=== PATIENT | female | born 2000 | race Two or more races ===

== ENCOUNTER 2020-02-25 12:41 | Emergency (ER) | payer MEDICAID ==
[2020-02-25 13:12] VITALS: BP 122/88; PULSE 77
[2020-02-25] MEDS ORDERED: Acetaminophen 500 MG Tab PO ONE (13:13)
[2020-02-25] MEDS ORDERED: Ondansetron 4 MG Tab.DIS PO ONE (13:14)
--- NOTE | 2020-02-25 13:47 | EDM.PDOC ---
ED HPI GENERAL MEDICAL PROBLEM - General Chief Complaint: Cardiovascular Problem Stated Complaint: MEDICAL Time Seen by Provider: 02/25/20 13:35 Source of Information: Reports: Patient, EMS, RN. Denies: Old Records History Limitations: Reports: Other (no old records) - History of Present Illness INITIAL COMMENTS - FREE TEXT/NARRATIVE: 19 yo female recently delivered a baby at [facility] and was discharged with medication for HTN. Elizabeth missed her dose of her BP med last night and when her BP was elevated this morning her mother called the ambulance. She did get her BP med before arrival and now her BP is OK. They did not call her doctor in [place]. Onset: Today Onset Date: 02/25/20 Duration: Minutes:, Improving Location: Reports: Head (mld BARBER) Quality: Reports: Ache Severity: Mild Improves with: Reports: Medication Worsens with: Reports: Other (? elevated BP) Context: Reports: Other (See HPI) Associated Symptoms: Reports: No Other Symptoms Treatments SUPERVISOR CHLORINE LIQUEFACTION: Reports: Other (see below) (BP med) Headache Pain Score (Numeric/FACES): 7 - Related Data Allergies Allergy/AdvReac Type Severity Reaction Status Date / Time haloperidol [From Haldol] Allergy Cannot Verified 02/25/20 12:59 Remember Home Meds: Home Meds Ferrous Sulfate 325 mg PO DAILY 02/25/20 [History] Labetalol [Normodyne] 100 mg PO BID 02/25/20 [History] Past Medical History HEENT History: Reports: None Cardiovascular History: Reports: None Respiratory History: Reports: None MOUNTER AUTOMATIC History: Reports: Neurological History: Reports: Concussion Psychiatric History: Reports: ADD, Anxiety, Depression, Panic Attack, Psych Hospitalization(s), Suicide Attempt, Suicidal Ideation, Other (See Below) Other Psychiatric History: pt with hx of video sexting that has caused emotional state - Infectious Disease History Infectious Disease History: Reports: Chicken Pox Other Infectious Disease History: pt is not current with shots due to appearant reaction to vaccinations when the pt was 2 yo - Past Surgical History Cardiovascular Surgical History: Reports: None Social & Family History - Family History Psychiatric: Reports: Anxiety - Tobacco Use Tobacco Use Status *Q: Never Tobacco User - Caffeine Use Caffeine Use: Reports: None Other Caffeine Use: not daily - Recreational Drug Use Recreational Drug Use: No - Living Situation & Occupation Living situation: Reports: Single, with Family Occupation: Student ED ROS GENERAL - Review of Systems Review Of Systems: See Below Constitutional: Reports: No Symptoms HEENT: Reports: No Symptoms Respiratory: Reports: No Symptoms Cardiovascular: Reports: No Symptoms Endocrine: Reports: No Symptoms GI/Abdominal: Reports: Nausea (mild). Denies: Vomiting : Reports: No Symptoms Musculoskeletal: Reports: No Symptoms Skin: Reports: No Symptoms Neurological: Reports: Headache (mild) ED EXAM, GENERAL - Physical Exam Exam: See Below Exam Limited By: No Limitations General Appearance: Alert, WD/WN, No Apparent Distress Eye Exam: Bilateral Eye: Normal Inspection Ears: Normal External Exam, Normal Canal, Hearing Grossly Normal, Normal TMs Ear Exam: Bilateral Ear: Auricle Normal, Canal Normal, TM normal Nose: Normal Inspection, No Blood Throat/Mouth: Normal Inspection, Normal Lips, Normal Oropharynx, Normal Voice, No Airway Compromise Head: Atraumatic, Normocephalic Neck: Normal Inspection Respiratory/Chest: No Respiratory Distress, Lungs Clear, Normal Breath Sounds, No Accessory Muscle Use Cardiovascular: Regular Rate, Rhythm, No Edema GI/Abdominal: Normal Bowel Sounds, Soft, Non-Tender. No: Tender Back Exam: Normal Inspection Extremities: Normal Inspection, Normal Range of Motion, Non-Tender, No Pedal Edema Neurological: Alert, Oriented, CN II-XII Intact, Normal Cognition, No Motor/Sensory Deficits Psychiatric: Normal Affect, Normal Mood Skin Exam: Warm, Dry, Intact, Normal Color, No Rash Course - Vital Signs Last Recorded V/S: Last Vital Signs Temp 36.8 C 02/25/20 13:02 Pulse 77 02/25/20 13:02 Resp 16 02/25/20 13:02 BP 122/88 02/25/20 13:02 Pulse Ox 99 02/25/20 13:02 - Orders/Labs/Meds Meds: Medications Discontinued Medications Generic Name Dose Route Start Last Admin Trade Name Priteshq PRN Reason Stop Dose Admin Acetaminophen 1,000 mg 02/25/20 13:13 02/25/20 13:20 Tylenol Extra Strength PO 02/25/20 13:14 1,000 mg ONETIME ONE Administration Ondansetron HCl 4 mg 02/25/20 13:14 02/25/20 13:20 Zofran Odt PO 02/25/20 13:15 4 mg ONETIME ONE Administration Departure - Departure Time of Disposition: 13:48 Disposition: Home, Self-Care 01 Condition: Good Clinical Impression: Transient hypertension during , Referrals: PCP,None [Primary Care Provider] - Additional Instructions: Continue your usual meds. Stay in touch with your doctor about your condition. Sepsis Event Note (ED) - Evaluation Sepsis Screening Result: No Definite Risk - Focused Exam Vital Signs: Vital Signs Temp Pulse Resp BP Pulse Ox 02/25/20 13:02 36.8 C 77 16 122/88 99 02/25/20 12:56 36.8 C 77 16 122/88 99
== END 2020-02-25 14:01 | disposition home or self-care (01) ==
LOC: JP.ED 12:41
DX: O13.5 Gestational [pregnancy-induced] hypertension without significant proteinuria, complicating the puerperium (principal); Z88.8 Allergy status to other drugs, medicaments and biological substances
CPT/HCPCS: 99284; A9270; 99283

== ENCOUNTER 2020-02-25 19:31 | Inpatient (IN) | payer MEDICAID ==
--- NOTE | 2020-02-25 19:43 | EDM.PDOC ---
ED HPI GENERAL MEDICAL PROBLEM - General Chief Complaint: Cardiovascular Problem Stated Complaint: HIGH BLOOD PRESSURE Time Seen by Provider: 02/25/20 19:55 Source of Information: Reports: Patient, Old Records, Provider (Dr. Urmila Farrar, KIT PLANNER at [facility]) History Limitations: Reports: No Limitations - History of Present Illness INITIAL COMMENTS - FREE TEXT/NARRATIVE: Elizabeth is a 19-year-old female who was seen earlier today for elevated blood pressure related to recent delivery of child at the [facility] in [place], [place]. She had perigestational hypertension and was discharged on antihypertensive medication. She was seen earlier today by my colleague, Dr. Hong for headache related to her elevated blood pressure. After some Zofran and acetaminophen, the headache improved and the patient was hemodynamically stable with a normal pressure in which she was subsequently discharged. She returns tonight with concerns about elevated blood pressure of 160/100 and severe headache, tremor, nausea, and blurred vision. The patient apparently signed out from [facility] AGAINST MEDICAL ADVICE with a possible diagnosis of preeclampsia or eclampsia. She was started on labetalol 3 times daily. I had the opportunity to discuss the case with her KIT PLANNER, Dr. Farrar at [facility] who reported that the patient was 38 weeks gestation and had gestational diabetes requiring roughly 90 units of insulin a day. Patient was receiving Levemir 30 units daily and NovoLog 18 units with meals. During the labor the patient was normal to hypotensive after having an epidural for 30 hours. The epidural was complicated in that patient has scoliosis and it took nearly an hour to get it established after 5 attempts. This may have resulted in her headache being a spinal headache in nature. The patient did have hypertension with pressures running in the 150s to 160s systolic over the low 100s diastolic. It was reported that her liver enzymes remain normal and her creatinine to protein ratio was 0.27. The patient was started on labetalol prior to leaving the hospital and was instructed to take her labetalol 3 times a day. On further questioning of the patient, her headache does intensify with standing making this likely a spinal headache. - Related Data Allergies Allergy/AdvReac Type Severity Reaction Status Date / Time haloperidol [From Haldol] Allergy Cannot Verified 02/25/20 12:59 Remember Home Meds: Home Meds Ferrous Sulfate 325 mg PO DAILY 02/25/20 [History] Labetalol [Normodyne] 100 mg PO TID 02/25/20 [History] Past Medical History HEENT History: Reports: None Cardiovascular History: Reports: None Respiratory History: Reports: None KIT PLANNER History: Reports: Neurological History: Reports: Concussion Psychiatric History: Reports: ADD, Anxiety, Depression, Panic Attack, Psych Hospitalization(s), Suicide Attempt, Suicidal Ideation, Other (See Below) Other Psychiatric History: pt with hx of video sexting that has caused emotional state - Infectious Disease History Infectious Disease History: Reports: Chicken Pox Other Infectious Disease History: pt is not current with shots due to appearant reaction to vaccinations when the pt was 2 yo - Past Surgical History Cardiovascular Surgical History: Reports: None Social & Family History - Family History Psychiatric: Reports: Anxiety - Caffeine Use Caffeine Use: Reports: None Other Caffeine Use: not daily - Living Situation & Occupation Living situation: Reports: Single, with Family Occupation: Student ED ROS GENERAL - Review of Systems Review Of Systems: See Below Constitutional: Reports: Weakness HEENT: Reports: Vision Change Respiratory: Reports: No Symptoms Cardiovascular: Reports: Blood Pressure Problem, Edema (Bilateral lower extremity edema) Endocrine: Reports: Fatigue, High Glucose GI/Abdominal: Reports: Abdominal Pain, Nausea : Reports: Other (No urine output today.) Skin: Reports: No Symptoms Neurological: Reports: Headache, Tremors Psychiatric: Reports: Anxiety Hematologic/Lymphatic: Reports: No Symptoms Immunologic: Reports: No Symptoms ED EXAM, GENERAL - Physical Exam Exam: See Below Exam Limited By: No Limitations General Appearance: Alert, Anxious, Mild Distress Eye Exam: Bilateral Eye: EOMI, Normal Fundi, Normal Inspection, PERRL, Vision Changes (Blurred vision), Other (Photophobia) Ears: Normal External Exam, Normal Canal, Hearing Grossly Normal, Normal TMs Throat/Mouth: Normal Inspection, Normal Lips, Normal Oropharynx, Normal Voice, No Airway Compromise Head: Atraumatic, Normocephalic Neck: Normal Inspection, Supple, Non-Tender, Full Range of Motion. No: Carotid Bruit, Lymphadenopathy (R), Lymphadenopathy (L) Respiratory/Chest: No Respiratory Distress, Lungs Clear, Normal Breath Sounds, No Accessory Muscle Use, Chest Non-Tender Cardiovascular: Normal Peripheral Pulses, Regular Rate, Rhythm, No JVD, No Murmur, Other (1+ edema both ankles and feet.) Peripheral Pulses: 2+: Radial (L), Radial (R), Posterior Tibial (L), Posterior Tibial (R) GI/Abdominal: Normal Bowel Sounds, Soft, Tender (Lower abdominal tenderness). No: Guarding, Rigid, Rebound Back Exam: Normal Inspection Extremities: Normal Range of Motion, Normal Capillary Refill, Pedal Edema Neurological: Alert, Oriented, CN II-XII Intact, Normal Cognition, Normal Gait, No Motor/Sensory Deficits, Abnormal Reflexes (Hyperreflexia in the upper and lower extremities including the biceps, triceps, and patellar reflexes bilaterally.) Psychiatric: Anxious Skin Exam: Warm, Dry, Intact, Normal Color, No Rash Lymphatic: No Adenopathy Course - Vital Signs Last Recorded V/S: Last Vital Signs Temp 36.4 C 02/25/20 19:51 Pulse 86 02/25/20 20:58 Resp 18 02/25/20 20:58 BP 123/87 02/25/20 20:58 Pulse Ox 99 02/25/20 20:58 - Orders/Labs/Meds Orders: Active Orders 24 hr Category Date Time Status Magnesium Sulfate/Water [Magnesium Sulfate in Water Med 02/25/20 20:30 Active Premix] 40 gm in 1,000 ml IV ASDIRECTED Sodium Chloride 0.9% [Saline Flush] Med 02/25/20 20:09 Active 10 ml FLUSH ASDIRECTED PRN Saline Lock Insert [OM.PC] Routine Oth 02/25/20 20:09 Ordered Medication Orders Magnesium Sulfate (Magnesium Sulfate In Water Premix) 40 gm in 1,000 mls @ 50 mls/hr IV ASDIRECTED ADDY; Protocol Last Admin: 02/25/20 21:03 Dose: 50 mls/hr Documented by: LOULOU Lactated Ringer's (Ringers, Lactated) 1,000 mls @ 125 mls/hr IV ASDIRECTED ADDY Sodium Chloride (Saline Flush) 10 ml FLUSH ASDIRECTED PRN PRN Reason: Keep Vein Open Last Admin: 02/25/20 20:33 Dose: 10 ml Documented by: LOULOU Sodium Chloride (Saline Flush) 10 ml FLUSH ASDIRECTED PRN PRN Reason: Keep Vein Open Labs: Laboratory Tests 02/25/20 02/25/20 02/25/20 Range/Units 20:11 20:11 20:27 WBC 18.0 H (4.5-11.0) K/uL RBC 3.05 L (3.30-5.50) M/uL Hgb 8.3 L D (12.0-15.0) g/dL Hct 25.3 L (36.0-48.0) % MCV 83 (80-98) fL MCH 27 (27-31) pg MCHC 33 (32-36) % Plt Count 209 (150-400) K/uL Add Manual Diff Yes Neutrophils % (Manual) 79 H (36-66) % Band Neutrophils % 5 (5-11) % Lymphocytes % (Manual) 11 L (24-44) % Monocytes % (Manual) 5 (2-6) % Sodium 143 (140-148) mmol/L Potassium 3.7 (3.6-5.2) mmol/L Chloride 109 H (100-108) mmol/L Carbon Dioxide 24 (21-32) mmol/L Anion Gap 13.7 (5.0-14.0) mmol/L BUN 10 (7-18) mg/dL Creatinine 0.8 (0.6-1.0) mg/dL Est Cr Clr Drug Dosing 101.78 mL/min Estimated GFR (MDRD) > 60 (>60) Glucose 88 (74-106) mg/dL Calcium 8.2 L (8.5-10.1) mg/dL Magnesium 1.9 (1.8-2.4) mg/dL Total Bilirubin 0.3 (0.2-1.0) mg/dL AST 13 L (15-37) U/L ALT 15 (12-78) U/L Alkaline Phosphatase 103 (46-116) U/L Albumin 2.3 L (3.4-5.0) g/dL Albumin/Globulin Ratio (1.2-2.2) Urine Color Yellow (YELLOW) Urine Appearance Slightly cloudy A (CLEAR) Urine pH 7.0 (5.0-8.0) Ur Specific [place] 1.025 (1.008-1.030) Urine Protein 30 H (NEGATIVE) mg/dL Urine Glucose (UA) Negative (NEGATIVE) mg/dL Urine Ketones Negative (NEGATIVE) mg/dL Urine Occult Blood Large H (NEGATIVE) Urine Nitrite Negative (NEGATIVE) Urine Bilirubin Small H (NEGATIVE) Urine Urobilinogen 2.0 H (0.2-1.0) EU/dL Ur Leukocyte Esterase Trace H (NEGATIVE) Urine RBC 20-30 H (0-5) Urine WBC 5-10 H (0-5) Ur Epithelial Cells Few Amorphous Sediment Not seen Urine Bacteria Moderate Urine Mucus Not seen Meds: Medications Generic Name Dose Route Start Last Admin Trade Name Priteshq PRN Reason Stop Dose Admin Magnesium Sulfate 40 gm in 1,000 mls @ 50 mls/hr 02/25/20 20:30 02/25/20 21:03 Magnesium Sulfate In Water Premix IV 50 mls/hr ASDIRECTED ADDY Administration Protocol Lactated Ringer's 1,000 mls @ 125 mls/hr 02/25/20 22:15 Ringers, Lactated IV ASDIRECTED ADDY Sodium Chloride 10 ml 02/25/20 20:09 02/25/20 20:33 Saline Flush FLUSH 10 ml ASDIRECTED PRN Administration Keep Vein Open Sodium Chloride 10 ml 02/25/20 22:13 Saline Flush FLUSH ASDIRECTED PRN Keep Vein Open Discontinued Medications Generic Name Dose Route Start Last Admin Trade Name Priteshq PRN Reason Stop Dose Admin Magnesium Sulfate 6 gm in 150 mls @ 25 mls/hr 02/25/20 20:09 02/25/20 21:08 Magnesium Sulfate In Water Premix IV 02/26/20 02:08 Not Given ONETIME ONE Magnesium Sulfate 4 mls @ 300 mls/hr 02/25/20 20:30 Magnesium Sulfate In Water Premix IV .BOLUS ADDY Magnesium Sulfate 2 gm in 50 mls @ 300 mls/hr 02/25/20 20:45 02/25/20 21:06 Magnesium Sulfate In Water Premix IV 02/25/20 21:14 300 mls/hr .Q10M ADDY Administration Lorazepam 0.5 mg 02/25/20 22:29 02/25/20 22:35 Ativan IVPUSH 02/25/20 22:30 0.5 mg ONETIME ONE Administration Ondansetron HCl 4 mg 02/25/20 20:42 Zofran IVPUSH 02/25/20 20:43 ONETIME ONE - Re-Assessments/Exams Free Text/Narrative Re-Assessment/Exam: 02/25/20 21:00 initiated therapy for preeclampsia with magnesium 6 g load and started a maintenance of 2 g/h thereafter. The patient is exhibiting symptoms that are worrisome for preeclampsia with elevated blood pressure, blurred vision, severe headache, tremor, and hyperreflexia. Her pressures at home of been in the 160 systolic over 100s diastolic although here she is in the high 140s over 90s. The patient has 3-4+ reflexes in the biceps, triceps, forearms, and patellar reflexes. There is no clonus. There is no papilledema on the funduscopic exam. The patient had a very complicated late term delivering at 37 weeks 5 days after being induced for related hypertension. She had an epidural that took 5 attempts because of scoliosis and then remained in place for 30 hours. During the time of labor she was hypotensive likely secondary to the epidural. She was hospitalized afterward and treated with labetalol for her blood pressure. It also appears that she had significant post anemia with a hemoglobin of 6.3 and likely received a transfusion as she was discharged with a hemoglobin of 7.9. In discussing with the patient's KIT PLANNER, Dr. Farrar at [facility] in [facility], the patient signed herself out AGAINST MEDICAL ADVICE yesterday and was instructed to take her labetalol 300 mg 3 times daily and check her blood pressure 3 times a day. The patient is at elevated risk for preeclampsia due to poorly controlled gestational diabetes. Because of the concern with the vision changes and severe headache, we will proceed with a CT of the head to evaluate for posterior reversible leukoencephalopathy. 02/25/20 21:40 I discussed the case with Melissa, nurse probation officer it sales consultant for [employer] to discuss admitting the patient for management of her preeclampsia. In addition, I will call Butch from anesthesia to apply a blood patch as a spinal CSF leak from the numerous attempts and prolonged epidural may be contributing to her severe headache. 02/25/20 22:42 patient given lorazepam 0.5 mg pre-blood patch for anxiety. Departure - Departure Time of Disposition: 22:43 Disposition: Admitted As Inpatient 66 Condition: Fair Clinical Impression: Preeclampsia in period Sepsis Event Note (ED) - Focused Exam Vital Signs: Vital Signs Temp Pulse Resp BP Pulse Ox 02/25/20 20:58 86 18 123/87 99 02/25/20 20:34 78 12 139/80 98 02/25/20 19:51 36.4 C 86 20 147/92 H 98 - Problem List & Annotations (1) Preeclampsia in period SNOMED Code(s): 894340523, 720489887 Code(s): O14.95 - UNSPECIFIED PRE-ECLAMPSIA, COMPLICATING THE PUERPERIUM Status: Acute Priority: High Current Visit: Yes - Problem List Review Problem List Initiated/Reviewed/Updated: Yes - My Orders Last 24 Hours: My Active Orders 02/25/20 20:09 Sodium Chloride 0.9% [Saline Flush] 10 ml FLUSH ASDIRECTED PRN Saline Lock Insert [OM.PC] Routine 02/25/20 20:30 Magnesium Sulfate/Water [Magnesium Sulfate in Water Premix] 40 gm in 1,000 ml IV ASDIRECTED - Assessment/Plan Last 24 Hours: My Active Orders 02/25/20 20:09 Sodium Chloride 0.9% [Saline Flush] 10 ml FLUSH ASDIRECTED PRN Saline Lock Insert [OM.PC] Routine 02/25/20 20:30 Magnesium Sulfate/Water [Magnesium Sulfate in Water Premix] 40 gm in 1,000 ml IV ASDIRECTED
[2020-02-25] MEDS ORDERED: Sodium Chloride 0.9% 10 ML Syringe FLUSH PRN ×2 (20:09→22:13)
[2020-02-25] MEDS ORDERED: MAGNESIUM SULFATE IV ONE (20:09)
[2020-02-25] MEDS ORDERED: [UNRECOGNIZED DRUG - OTHER] IV ONE (20:09)
[2020-02-25] MEDS ORDERED: MAGNESIUM SULFATE IV SCH (20:30)
[2020-02-25] MEDS ORDERED: WATER IV SCH (20:30)
[2020-02-25] MEDS ORDERED: Ondansetron 4 MG/2 ML SDV IVPUSH ONE (20:42)
[2020-02-25] MEDS: Magnesium Sulfate/Water 2 GM/50 ML BAG IV SCH ×3 (20:45→21:06)
[2020-02-25] MEDS: Magnesium Sulfate/Water 40 GM/1,000 ML BAG IV SCH (21:03)
[2020-02-25] MEDS ORDERED: LORazepam 2 MG/ML SDV IVPUSH ONE (22:29)
--- NOTE | 2020-02-25 22:36 | CRLCT ---
Indication: headache, preeclampsia Technique: Nonenhanced axial CT imaging through the head. Coronal reconstructions are provided. Comparison: None Findings: There is no intracranial hemorrhage, edema, or mass effect. There is normal attenuation of the brain parenchyma. The ventricles are normal in size. The basal cisterns are patent. The calvarium is intact. The visualized paranasal sinuses and mastoid air cells are aerated. Impression: Unremarkable examination. No acute intracranial process. Please note that all CT scans at this facility use dose modulation, iterative reconstruction, and/or weight-based dosing when appropriate to reduce radiation dose to as low as reasonably achievable. Dictated by Kal Cervantes MD @ Feb 25 2020 10:30PM Signed by Dr. Kal Cervantes @ Feb 25 2020 10:35PM
[2020-02-25] MEDS ORDERED: Lisinopril 20 MG Tab PO SCH (22:45)
[2020-02-25] MEDS ORDERED: Furosemide 20 MG/2 ML VIAL IVPUSH ONE (22:46)
[2020-02-25] MEDS ORDERED: hydrALAZINE 20 MG/ML SDV IVPUSH PRN (22:49)
[2020-02-25] MEDS ORDERED: Calcium Gluconate 10% 1 GM/10 ML SDV IVPUSH ONE (22:49)
[2020-02-25] MEDS: Lactated Ringers 1,000 ML IV SCH (23:04)
--- NOTE | 2020-02-25 23:08 | PCM.LDHP ---
L&D History of Present Illness - General Date of Service: 02/25/20 (post hypertension severe) Admit Problem/Dx: Patient Status Order with Admit Dx/Problem 02/25/20 22:13 Patient Status [ADT] Routine Admission Diagnosis/Problem Admission Diagnosis/Problem Pre-eclampsia, Source of Information: Patient History Limitations: Reports: No Limitations - History of Present Illness Introduction:: Delivered a viable male infant at [facility] several days ago with complications of GDM, hypertension, GBS positive. Prolonged induction at 38 weeks gestation. Multiple sticks for epidural, then 30 hours of infusion. Left the hospital AMA. Was to our ER twice today for headache and not feeling well. Her blood pressure was found to be in the pre eclamptic range and abnormal labs and clinical signs of severe eclampsia This evening was worked up appropriately in the ER. CT scan of head WNL, Blood patch by CATE for spinal headache and admitted for pre eclampsia. Baby is bottle feeding and with the father. Her mother has been with her this evening. 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 Para: 1 LMP (Approximate): Other (See Below) (is delivered a male and now post ) Neurological History: Reports: Concussion Psychiatric History: Reports: ADD, Anxiety, Depression, Panic Attack, Psych Hospitalization(s), Suicide Attempt, Suicidal Ideation, Other (See Below) Other Psychiatric History: pt with hx of video sexting that has caused emotional state - Infectious Disease History Infectious Disease History: Reports: Chicken Pox Other Infectious Disease History: pt is not current with shots due to appearant reaction to vaccinations when the pt was 2 yo - Past Surgical History Cardiovascular Surgical History: Reports: None Social & Family History - Family History Psychiatric: Reports: Anxiety - Tobacco Use Tobacco Use Status *Q: Never Tobacco User - Caffeine Use Caffeine Use: Reports: None Other Caffeine Use: not daily - Recreational Drug Use Recreational Drug Use: No - Living Situation & Occupation Living situation: Reports: Single, with Family Occupation: Student H&P Review of Systems - Review of Systems: Review Of Systems: See Below General: Reports: Malaise, Weakness HEENT: Reports: Headaches Pulmonary: Reports: No Symptoms Cardiovascular: Reports: Edema, Blood Pressure Problem Gastrointestinal: Reports: No Symptoms Genitourinary: Reports: Other (flow normal for post , mild cramping) Musculoskeletal: Reports: No Symptoms Skin: Reports: No Symptoms Psychiatric: Reports: No Symptoms Neurological: Reports: Headache, Tremors, Weakness Hematologic/Lymphatic: Reports: No Symptoms Immunologic: Reports: No Symptoms L&D Exam - Exam Exam: See Below - Vital Signs Vital Signs: Last Vital Signs Temp 97.5 F 02/25/20 19:51 Pulse 86 02/25/20 20:58 Resp 18 02/25/20 20:58 BP 123/87 02/25/20 20:58 Pulse Ox 99 02/25/20 20:58 Weight: 208 lb 5.389 oz - Exam General: Alert, Oriented, Cooperative HEENT: PERRLA, Hearing Intact, Mucosa Moist & [place], Pupils Equal Neck: Supple, Full Range of Motion Lungs: Clear to Auscultation, Normal Respiratory Effort Cardiovascular: Regular Rate, Regular Rhythm. No: Systolic Murmur GI/Abdominal Exam: Soft, Non-Tender, No Organomegaly Genitourinary: Vaginal bleeding Back Exam: Other (tender at the site of the epidural) Extremities: Pedal Edema, Baylee's Sign Skin: Warm, Dry, Intact Neurological: Cranial Nerves Intact, Normal Speech, Hyperreflexia DTR: 4+: Bicep (L), Bicep (R), Patella (L), Patella (R) Psychiatric: Alert, Normal Affect, Normal Mood - Patient Data Lab Results Last 24 hrs: Laboratory Results - last 24 hr 02/25/20 02/25/20 02/25/20 Range/Units 20:11 20:11 20:27 WBC 18.0 H (4.5-11.0) K/uL RBC 3.05 L (3.30-5.50) M/uL Hgb 8.3 L D (12.0-15.0) g/dL Hct 25.3 L (36.0-48.0) % MCV 83 (80-98) fL MCH 27 (27-31) pg MCHC 33 (32-36) % Plt Count 209 (150-400) K/uL Add Manual Diff Yes Neutrophils % (Manual) 79 H (36-66) % Band Neutrophils % 5 (5-11) % Lymphocytes % (Manual) 11 L (24-44) % Monocytes % (Manual) 5 (2-6) % Sodium 143 (140-148) mmol/L Potassium 3.7 (3.6-5.2) mmol/L Chloride 109 H (100-108) mmol/L Carbon Dioxide 24 (21-32) mmol/L Anion Gap 13.7 (5.0-14.0) mmol/L BUN 10 (7-18) mg/dL Creatinine 0.8 (0.6-1.0) mg/dL Est Cr Clr Drug Dosing 101.78 mL/min Estimated GFR (MDRD) > 60 (>60) Glucose 88 (74-106) mg/dL Calcium 8.2 L (8.5-10.1) mg/dL Magnesium 1.9 (1.8-2.4) mg/dL Total Bilirubin 0.3 (0.2-1.0) mg/dL AST 13 L (15-37) U/L ALT 15 (12-78) U/L Alkaline Phosphatase 103 (46-116) U/L Albumin 2.3 L (3.4-5.0) g/dL Albumin/Globulin Ratio (1.2-2.2) Urine Color Yellow (YELLOW) Urine Appearance Slightly cloudy A (CLEAR) Urine pH 7.0 (5.0-8.0) Ur Specific [place] 1.025 (1.008-1.030) Urine Protein 30 H (NEGATIVE) mg/dL Urine Glucose (UA) Negative (NEGATIVE) mg/dL Urine Ketones Negative (NEGATIVE) mg/dL Urine Occult Blood Large H (NEGATIVE) Urine Nitrite Negative (NEGATIVE) Urine Bilirubin Small H (NEGATIVE) Urine Urobilinogen 2.0 H (0.2-1.0) EU/dL Ur Leukocyte Esterase Trace H (NEGATIVE) Urine RBC 20-30 H (0-5) Urine WBC 5-10 H (0-5) Ur Epithelial Cells Few Amorphous Sediment Not seen Urine Bacteria Moderate Urine Mucus Not seen Result Diagrams: 02/25/20 20:11 02/25/20 20:11 - Problem List (1) GBS (group B streptococcus) infection SNOMED Code(s): 737556885 ICD Code: A49.1 - STREPTOCOCCAL INFECTION, UNSPECIFIED SITE Status: Acute Current Visit: Yes (2) Preeclampsia in period SNOMED Code(s): 537198316, 650963697 ICD Code: O14.95 - UNSPECIFIED PRE-ECLAMPSIA, COMPLICATING THE PUERPERIUM Status: Acute Priority: High Current Visit: Yes (3) Depressive disorder SNOMED Code(s): 81704983 ICD Code: F32.9 - MAJOR DEPRESSIVE DISORDER, SINGLE EPISODE, UNSPECIFIED Status: Chronic Current Visit: No (4) Spinal headache SNOMED Code(s): 507702278 ICD Code: G97.1 - OTHER REACTION TO SPINAL AND LUMBAR PUNCTURE Status: Acute Current Visit: Yes (5) complication SNOMED Code(s): 70310332 ICD Code: O90.89 - OTH COMPLICATIONS OF THE PUERPERIUM, NEC Status: Acute Current Visit: Yes Problem List Initiated/Reviewed/Updated: Yes Orders Last 24hrs: Active Orders 24 hr Category Date Time Status Patient Status [ADT] Routine ADT 02/25/20 22:13 Active Bedrest Bedside Commode [RC] ASDIRECTED Care 02/25/20 22:13 Active Height and Weight [RC] UPON Care 02/25/20 22:13 Active Intake and Output Strict [RC] ASDIRECTED Care 02/25/20 22:13 Active Notify Provider [RC] PRN Care 02/25/20 22:13 Active Notify Provider [RC] PRN Care 02/25/20 22:13 Active Notify Provider [RC] PRN Care 02/25/20 22:13 Active Notify Provider [RC] PRN Care 02/25/20 22:13 Active Peripheral IV Care [RC] . DIRECTED Care 02/25/20 22:13 Active Peripheral IV Care [RC] . DIRECTED Care 02/25/20 22:16 Active Positioning, Left Lateral [RC] ASDIRECTED Care 02/25/20 22:13 Active Vital Signs [RC] PER UNIT ROUTINE Care 02/25/20 22:13 Active Regular Diet [DIET] Diet 02/26/20 Breakfast Active ALANINE AMINOTRANSFERASE,ALT [CHEM] AM Lab 02/26/20 05:11 Ordered ASPARTATE AMNIOTRANSFERASE,AST [CHEM] Routine Lab 02/26/20 06:00 Ordered BASIC METABOLIC PANEL,BMP [CHEM] AM Lab 02/26/20 05:11 Ordered CBC WITH AUTO DIFF [HEME] AM Lab 02/26/20 05:11 Ordered INR,PT,PROTHROMBIN TIME [COAG] AM Lab 02/26/20 05:11 Ordered LACTATE DEHYDROGENASE,LDH [CHEM] AM Lab 02/26/20 05:11 Ordered PROTEIN/CREATININE RATIO,URINE [URCHEM] AM Lab 02/26/20 05:11 Ordered URIC ACID [CHEM] Routine Lab 02/26/20 06:00 Ordered Lactated Ringers [Ringers, Lactated] 1,000 ml Med 02/25/20 22:15 Active IV ASDIRECTED Magnesium Sulfate/Water [Magnesium Sulfate in Water Med 02/25/20 20:30 Active Premix] 40 gm in 1,000 ml IV ASDIRECTED Sodium Chloride 0.9% [Saline Flush] Med 02/25/20 20:09 Active 10 ml FLUSH ASDIRECTED PRN Sodium Chloride 0.9% [Saline Flush] Med 02/25/20 22:13 Active 10 ml FLUSH ASDIRECTED PRN cefTRIAXone [Rocephin] 2 gm Med 02/25/20 23:00 Ordered Sodium Chloride 0.9% [Normal Saline] 50 ml IV Q24H hydrALAZINE [Apresoline] Med 02/25/20 22:49 Ordered 5 mg IVPUSH Q20M PRN hydroCHLOROthiazide Med 02/26/20 09:00 Ordered 25 mg PO DAILY lisinopriL [Prinivil] Med 02/25/20 22:45 Ordered 20 mg PO DAILY Deep Tendon Reflexes [WOMSER] Per Unit Routine Oth 02/25/20 22:13 Ordered Peripheral IV Insertion Adult [OM.PC] Routine Oth 02/25/20 22:13 Ordered Saline Lock Insert [OM.PC] Routine Oth 02/25/20 20:09 Ordered Seizure Precautions [OM.PC] Routine Oth 02/25/20 22:13 Ordered Resuscitation Status Routine Resus Stat 02/25/20 22:13 Ordered Medication Orders Hydralazine HCl (Apresoline) 5 mg IVPUSH Q20M PRN PRN Reason: Hypertension Hydrochlorothiazide (Hydrochlorothiazide) 25 mg PO DAILY ADDY Magnesium Sulfate (Magnesium Sulfate In Water Premix) 40 gm in 1,000 mls @ 50 mls/hr IV ASDIRECTED ADDY; Protocol Last Admin: 02/25/20 21:03 Dose: 50 mls/hr Documented by: LOULOU Lactated Ringer's (Ringers, Lactated) 1,000 mls @ 125 mls/hr IV ASDIRECTED ADDY Ceftriaxone Sodium 2 gm/ (Sodium Chloride) 50 mls @ 100 mls/hr IV Q24H ADDY Lisinopril (Prinivil) 20 mg PO DAILY ADDY Sodium Chloride (Saline Flush) 10 ml FLUSH ASDIRECTED PRN PRN Reason: Keep Vein Open Last Admin: 02/25/20 20:33 Dose: 10 ml Documented by: LOULOU Sodium Chloride (Saline Flush) 10 ml FLUSH ASDIRECTED PRN PRN Reason: Keep Vein Open Assessment/Plan Comment:: 19 year old vaginal delivered male several days ago. Complicated by GDM was insulin, hypertension was sent home on beta reinaldo, GBS positive and was treated in the hospital, prolonged labor with 30 hour epidural. Left AMA from the hospital. Now has spinal headache, preeclampsia, elevated white count baby is bottle feeding and with father non smoker Plan: Magnesium infusion, seizure precautions lisinopril 20 mg daily Lasix 20 mg IV tonight then HCTZ 25 mg daily Hydralazine if blood pressure increases 160/110 Rocephin 2 gm daily for GBS and elevated white count reassess in the AM 48-72 hour stay
[2020-02-25] MEDS ORDERED: Magnesium Sulfate/Water 40 GM/1,000 ML BAG IV SCH (23:30)
[2020-02-25] MEDS ORDERED: Lisinopril 10 MG Tab PO SCH (23:45)
[2020-02-25] MEDS: cefTRIAXone 2 GM in Sodium Chloride 0.9% 50 ML IV SCH (23:48)
--- NOTE | 2020-02-26 00:02 | ANES ---
DATE OF SERVICE: 02/25/2020 Elizabeth is a 19-year-old female patient in our emergency department. I was consulted to assess the patient for epidural blood patch. Upon arrival, I found a healthy 19-year-old female with a significant post dural puncture headache. The patient states that on the 12th of this month, she was in another facility, and there were [address] an epidural catheter for labor and delivery. She states she had had a significant amount of discomfort with epidural attempts and then within the last 48 hours began a very significant headache issue as well as other pre-eclamptic symptoms. She states the headache went away as she lay flat, but when she sat straight up, it was a very significant headache. I discussed with her her history and reviewed her lab work and found no contraindication to epidural blood patch placement. I reviewed with her the procedure as well as risks and benefits, and she was okay to proceed, and consent was received. I had her seated at the edge of the bed. Betadine prep x3 to the lumbar region. A sterile drape was placed. 1% lidocaine skin wheal as well as deep at what I believed to be the L3-L4 region. At this level, it looks to be approximately 5 puncture sites. I was able to locate loss of resistance with ease. At that point, I had the nurse in the room place a new peripheral IV in the left antecubital space and with a sterile technique removed 20 mL of the patient's blood. I then injected that 20 mL through the epidural needle. The patient tolerated with some pressure but not unbearable and was able to tolerate the full 20 mL dose. Upon completion, the needle was removed. The drape was removed. Her back was washed and a Band-Aid over the injection site. I placed her in a supine position and discussed with her approximately an hour or two in this position before sitting permanently upright as well as a minimal amount of fluid due to her hemoglobin at the 8.3 range. I discussed the procedure with the nurse as well as with Sarah Ray, and she was going to diurese her at this point as well. The patient tolerated the procedure quite well. Please refer to nursing notes for vital signs and neuro status throughout and postprocedure. Thank you very much for the consult. Butch Long CRNA /[id number]
[2020-02-26] MEDS: Lactated Ringers 1,000 ML IV SCH ×2 (07:21→16:24)
[2020-02-26] MEDS ORDERED: Calcium Gluconate 10% 1 GM/10 ML SDV IVPUSH PRN (08:00)
[2020-02-26] MEDS: Hydrochlorothiazide 25 MG Tab PO SCH (08:17)
[2020-02-26] MEDS: Acetaminophen 500 MG Tab PO PRN ×3 (08:17→22:52)
[2020-02-26] MEDS: Lisinopril 20 MG Tab PO SCH (08:18)
--- NOTE | 2020-02-26 09:55 | PCM.PN ---
- General Info Date of Service: 02/26/20 (post pre eclampsia) Admission Dx/Problem (Free Text): Patient Status Order with Admit Dx/Problem 02/25/20 22:13 Patient Status [ADT] Routine Admission Diagnosis/Problem Admission Diagnosis/Problem Pre-eclampsia, Functional Status: Reports: Pain Controlled - Review of Systems General: Reports: Fatigue, Appetite HEENT: Reports: Other (headache resolved) Pulmonary: Reports: No Symptoms Cardiovascular: Reports: Edema (no longer pitting and not as extensive) Gastrointestinal: Reports: No Symptoms Genitourinary: Reports: Other (flow light, not much cramping, voiding large amounts of clear urine) Musculoskeletal: Reports: Back Pain (discomfort at the site of the epidural) Skin: Reports: No Symptoms Neurological: Reports: Weakness. Denies: Tremors Psychiatric: Reports: No Symptoms - Patient Data Vitals - Most Recent: Last Vital Signs Temp 96.5 F L 02/26/20 08:00 Pulse 91 02/26/20 08:00 Resp 18 02/26/20 08:00 BP 127/71 02/26/20 08:18 Pulse Ox 98 02/26/20 08:00 Weight - Most Recent: 208 lb 5.389 oz I&O - Last 24 Hours: Intake & Output 02/25/20 02/26/20 02/26/20 22:59 06:59 14:59 Intake Total 1130 Output Total 1500 2800 Balance -1500 -1670 Lab Results Last 24 Hours: Laboratory Results - last 24 hr 02/25/20 02/25/20 02/25/20 Range/Units 20:11 20:11 20:11 WBC 18.0 H (4.5-11.0) K/uL RBC 3.05 L (3.30-5.50) M/uL Hgb 8.3 L D (12.0-15.0) g/dL Hct 25.3 L (36.0-48.0) % MCV 83 (80-98) fL MCH 27 (27-31) pg MCHC 33 (32-36) % Plt Count 209 (150-400) K/uL Add Manual Diff Yes Neutrophils % (Manual) 79 H (36-66) % Band Neutrophils % 5 (5-11) % Lymphocytes % (Manual) 11 L (24-44) % Monocytes % (Manual) 5 (2-6) % Eosinophils % (Manual) (2-4) % Anisocytosis PT (9.5-12.0) sec INR (0.80-1.20) Sodium 143 (140-148) mmol/L Potassium 3.7 (3.6-5.2) mmol/L Chloride 109 H (100-108) mmol/L Carbon Dioxide 24 (21-32) mmol/L Anion Gap 13.7 (5.0-14.0) mmol/L BUN 10 (7-18) mg/dL Creatinine 0.8 (0.6-1.0) mg/dL Est Cr Clr Drug Dosing 101.78 mL/min Estimated GFR (MDRD) > 60 (>60) Glucose 88 (74-106) mg/dL POC Glucose 96 (74-106) MG/DL Uric Acid (2.6-6.2) mg/dL Calcium 8.2 L (8.5-10.1) mg/dL Magnesium 1.9 (1.8-2.4) mg/dL Total Bilirubin 0.3 (0.2-1.0) mg/dL AST 13 L (15-37) U/L ALT 15 (12-78) U/L Alkaline Phosphatase 103 (46-116) U/L Lactate Dehydrogenase (82-234) U/L Total Protein 5.6 L (6.4-8.2) g/dL Albumin 2.3 L (3.4-5.0) g/dL Globulin 3.3 (2.3-3.5) g/dL Albumin/Globulin Ratio 0.7 L (1.2-2.2) Urine Color (YELLOW) Urine Appearance (CLEAR) Urine pH (5.0-8.0) Ur Specific [place] (1.008-1.030) Urine Protein (NEGATIVE) mg/dL Urine Glucose (UA) (NEGATIVE) mg/dL Urine Ketones (NEGATIVE) mg/dL Urine Occult Blood (NEGATIVE) Urine Nitrite (NEGATIVE) Urine Bilirubin (NEGATIVE) Urine Urobilinogen (0.2-1.0) EU/dL Ur Leukocyte Esterase (NEGATIVE) Urine RBC (0-5) Urine WBC (0-5) Ur Epithelial Cells Amorphous Sediment Urine Bacteria Urine Mucus Ur Random Creatinine (20.0-370.0) mg/dL U Random Total Protein (6.0-11.9) mg/dL Protein/Creatinin Ratio (21.0-161.0) mg/g 02/25/20 02/26/20 02/26/20 Range/Units 20:27 01:07 05:11 WBC (4.5-11.0) K/uL RBC (3.30-5.50) M/uL Hgb (12.0-15.0) g/dL Hct (36.0-48.0) % MCV (80-98) fL MCH (27-31) pg MCHC (32-36) % Plt Count (150-400) K/uL Add Manual Diff Neutrophils % (Manual) (36-66) % Band Neutrophils % (5-11) % Lymphocytes % (Manual) (24-44) % Monocytes % (Manual) (2-6) % Eosinophils % (Manual) (2-4) % Anisocytosis PT (9.5-12.0) sec INR (0.80-1.20) Sodium (140-148) mmol/L Potassium (3.6-5.2) mmol/L Chloride (100-108) mmol/L Carbon Dioxide (21-32) mmol/L Anion Gap (5.0-14.0) mmol/L BUN (7-18) mg/dL Creatinine (0.6-1.0) mg/dL Est Cr Clr Drug Dosing mL/min Estimated GFR (MDRD) (>60) Glucose (74-106) mg/dL POC Glucose (74-106) MG/DL Uric Acid (2.6-6.2) mg/dL Calcium (8.5-10.1) mg/dL Magnesium 4.7 H D (1.8-2.4) mg/dL Total Bilirubin (0.2-1.0) mg/dL AST (15-37) U/L ALT (12-78) U/L Alkaline Phosphatase (46-116) U/L Lactate Dehydrogenase (82-234) U/L Total Protein (6.4-8.2) g/dL Albumin (3.4-5.0) g/dL Globulin (2.3-3.5) g/dL Albumin/Globulin Ratio (1.2-2.2) Urine Color Yellow (YELLOW) Urine Appearance Slightly cloudy A (CLEAR) Urine pH 7.0 (5.0-8.0) Ur Specific [place] 1.025 (1.008-1.030) Urine Protein 30 H (NEGATIVE) mg/dL Urine Glucose (UA) Negative (NEGATIVE) mg/dL Urine Ketones Negative (NEGATIVE) mg/dL Urine Occult Blood Large H (NEGATIVE) Urine Nitrite Negative (NEGATIVE) Urine Bilirubin Small H (NEGATIVE) Urine Urobilinogen 2.0 H (0.2-1.0) EU/dL Ur Leukocyte Esterase Trace H (NEGATIVE) Urine RBC 20-30 H (0-5) Urine WBC 5-10 H (0-5) Ur Epithelial Cells Few Amorphous Sediment Not seen Urine Bacteria Moderate Urine Mucus Not seen Ur Random Creatinine 5.0 L (20.0-370.0) mg/dL U Random Total Protein < 6.0 L (6.0-11.9) mg/dL Protein/Creatinin Ratio (21.0-161.0) mg/g 02/26/20 02/26/20 02/26/20 Range/Units 05:17 05:17 05:17 WBC 17.3 H (4.5-11.0) K/uL RBC 3.59 (3.30-5.50) M/uL Hgb 9.3 L (12.0-15.0) g/dL Hct 29.9 L (36.0-48.0) % MCV 83 (80-98) fL MCH 26 L (27-31) pg MCHC 31 L (32-36) % Plt Count 247 (150-400) K/uL Add Manual Diff Yes Neutrophils % (Manual) 74 H (36-66) % Band Neutrophils % 5 (5-11) % Lymphocytes % (Manual) 14 L (24-44) % Monocytes % (Manual) 4 (2-6) % Eosinophils % (Manual) 3 (2-4) % Anisocytosis Moderate H PT 9.3 L (9.5-12.0) sec INR 0.85 (0.80-1.20) Sodium 142 (140-148) mmol/L Potassium 3.5 L (3.6-5.2) mmol/L Chloride 105 (100-108) mmol/L Carbon Dioxide 25 (21-32) mmol/L Anion Gap 15.5 H (5.0-14.0) mmol/L BUN 8 (7-18) mg/dL Creatinine 0.7 (0.6-1.0) mg/dL Est Cr Clr Drug Dosing 116.32 mL/min Estimated GFR (MDRD) > 60 (>60) Glucose 89 (74-106) mg/dL POC Glucose (74-106) MG/DL Uric Acid (2.6-6.2) mg/dL Calcium 7.6 L (8.5-10.1) mg/dL Magnesium (1.8-2.4) mg/dL Total Bilirubin (0.2-1.0) mg/dL AST (15-37) U/L ALT 19 (12-78) U/L Alkaline Phosphatase (46-116) U/L Lactate Dehydrogenase 237 H (82-234) U/L Total Protein (6.4-8.2) g/dL Albumin (3.4-5.0) g/dL Globulin (2.3-3.5) g/dL Albumin/Globulin Ratio (1.2-2.2) Urine Color (YELLOW) Urine Appearance (CLEAR) Urine pH (5.0-8.0) Ur Specific [place] (1.008-1.030) Urine Protein (NEGATIVE) mg/dL Urine Glucose (UA) (NEGATIVE) mg/dL Urine Ketones (NEGATIVE) mg/dL Urine Occult Blood (NEGATIVE) Urine Nitrite (NEGATIVE) Urine Bilirubin (NEGATIVE) Urine Urobilinogen (0.2-1.0) EU/dL Ur Leukocyte Esterase (NEGATIVE) Urine RBC (0-5) Urine WBC (0-5) Ur Epithelial Cells Amorphous Sediment Urine Bacteria Urine Mucus Ur Random Creatinine (20.0-370.0) mg/dL U Random Total Protein (6.0-11.9) mg/dL Protein/Creatinin Ratio (21.0-161.0) mg/g 02/26/20 02/26/20 02/26/20 Range/Units 05:17 05:17 05:17 WBC (4.5-11.0) K/uL RBC (3.30-5.50) M/uL Hgb (12.0-15.0) g/dL Hct (36.0-48.0) % MCV (80-98) fL MCH (27-31) pg MCHC (32-36) % Plt Count (150-400) K/uL Add Manual Diff Neutrophils % (Manual) (36-66) % Band Neutrophils % (5-11) % Lymphocytes % (Manual) (24-44) % Monocytes % (Manual) (2-6) % Eosinophils % (Manual) (2-4) % Anisocytosis PT (9.5-12.0) sec INR (0.80-1.20) Sodium (140-148) mmol/L Potassium (3.6-5.2) mmol/L Chloride (100-108) mmol/L Carbon Dioxide (21-32) mmol/L Anion Gap (5.0-14.0) mmol/L BUN (7-18) mg/dL Creatinine (0.6-1.0) mg/dL Est Cr Clr Drug Dosing mL/min Estimated GFR (MDRD) (>60) Glucose (74-106) mg/dL POC Glucose (74-106) MG/DL Uric Acid 6.1 (2.6-6.2) mg/dL Calcium (8.5-10.1) mg/dL Magnesium 5.5 H D (1.8-2.4) mg/dL Total Bilirubin (0.2-1.0) mg/dL AST 18 (15-37) U/L ALT (12-78) U/L Alkaline Phosphatase (46-116) U/L Lactate Dehydrogenase (82-234) U/L Total Protein (6.4-8.2) g/dL Albumin (3.4-5.0) g/dL Globulin (2.3-3.5) g/dL Albumin/Globulin Ratio (1.2-2.2) Urine Color (YELLOW) Urine Appearance (CLEAR) Urine pH (5.0-8.0) Ur Specific [place] (1.008-1.030) Urine Protein (NEGATIVE) mg/dL Urine Glucose (UA) (NEGATIVE) mg/dL Urine Ketones (NEGATIVE) mg/dL Urine Occult Blood (NEGATIVE) Urine Nitrite (NEGATIVE) Urine Bilirubin (NEGATIVE) Urine Urobilinogen (0.2-1.0) EU/dL Ur Leukocyte Esterase (NEGATIVE) Urine RBC (0-5) Urine WBC (0-5) Ur Epithelial Cells Amorphous Sediment Urine Bacteria Urine Mucus Ur Random Creatinine (20.0-370.0) mg/dL U Random Total Protein (6.0-11.9) mg/dL Protein/Creatinin Ratio (21.0-161.0) mg/g 01/16/21 Range/Units 09:12 WBC (4.5-11.0) K/uL RBC (3.30-5.50) M/uL Hgb (12.0-15.0) g/dL Hct (36.0-48.0) % MCV (80-98) fL MCH (27-31) pg MCHC (32-36) % Plt Count (150-400) K/uL Add Manual Diff Neutrophils % (Manual) (36-66) % Band Neutrophils % (5-11) % Lymphocytes % (Manual) (24-44) % Monocytes % (Manual) (2-6) % Eosinophils % (Manual) (2-4) % Anisocytosis PT (9.5-12.0) sec INR (0.80-1.20) Sodium (140-148) mmol/L Potassium (3.6-5.2) mmol/L Chloride (100-108) mmol/L Carbon Dioxide (21-32) mmol/L Anion Gap (5.0-14.0) mmol/L BUN (7-18) mg/dL Creatinine (0.6-1.0) mg/dL Est Cr Clr Drug Dosing mL/min Estimated GFR (MDRD) (>60) Glucose (74-106) mg/dL POC Glucose (74-106) MG/DL Uric Acid (2.6-6.2) mg/dL Calcium (8.5-10.1) mg/dL Magnesium 6.1 H D (1.8-2.4) mg/dL Total Bilirubin (0.2-1.0) mg/dL AST (15-37) U/L ALT (12-78) U/L Alkaline Phosphatase (46-116) U/L Lactate Dehydrogenase (82-234) U/L Total Protein (6.4-8.2) g/dL Albumin (3.4-5.0) g/dL Globulin (2.3-3.5) g/dL Albumin/Globulin Ratio (1.2-2.2) Urine Color (YELLOW) Urine Appearance (CLEAR) Urine pH (5.0-8.0) Ur Specific [place] (1.008-1.030) Urine Protein (NEGATIVE) mg/dL Urine Glucose (UA) (NEGATIVE) mg/dL Urine Ketones (NEGATIVE) mg/dL Urine Occult Blood (NEGATIVE) Urine Nitrite (NEGATIVE) Urine Bilirubin (NEGATIVE) Urine Urobilinogen (0.2-1.0) EU/dL Ur Leukocyte Esterase (NEGATIVE) Urine RBC (0-5) Urine WBC (0-5) Ur Epithelial Cells Amorphous Sediment Urine Bacteria Urine Mucus Ur Random Creatinine (20.0-370.0) mg/dL U Random Total Protein (6.0-11.9) mg/dL Protein/Creatinin Ratio (21.0-161.0) mg/g Med Orders - Current: Current Medications Acetaminophen (Tylenol Extra Strength) 500 mg PO Q4H PRN PRN Reason: muscle soreness Last Admin: 02/26/20 08:17 Dose: 500 mg Documented by: Calcium Gluconate (Calcium Gluconate) 1 gm IVPUSH ONETIME PRN PRN Reason: MAGNESIUM TOXICITY Hydralazine HCl (Apresoline) 5 mg IVPUSH Q20M PRN PRN Reason: Hypertension Hydrochlorothiazide (Hydrochlorothiazide) 25 mg PO DAILY [facility] Last Admin: 02/26/20 08:17 Dose: 25 mg Documented by: Magnesium Sulfate (Magnesium Sulfate In Water Premix) 40 gm in 1,000 mls @ 50 mls/hr IV ASDIRECTED [facility]; Protocol Last Admin: 02/25/20 21:03 Dose: 50 mls/hr Documented by: Lactated Ringer's (Ringers, Lactated) 1,000 mls @ 125 mls/hr IV ASDIRECTED [facility] Last Admin: 02/26/20 07:21 Dose: 125 mls/hr Documented by: Ceftriaxone Sodium 2 gm/ (Sodium Chloride) 50 mls @ 100 mls/hr IV Q24H [facility] Last Admin: 02/25/20 23:48 Dose: 100 mls/hr Documented by: Magnesium Sulfate (Magnesium Sulfate In Water Premix) 40 gm in 1,000 mls @ 50 mls/hr IV ASDIRECTED [facility]; Protocol Lisinopril (Prinivil) 20 mg PO DAILY [facility] Last Admin: 02/26/20 08:18 Dose: 20 mg Documented by: Sodium Chloride (Saline Flush) 10 ml FLUSH ASDIRECTED PRN PRN Reason: Keep Vein Open Discontinued Medications Calcium Gluconate (Calcium Gluconate) 1 gm IVPUSH ONETIME ONE Stop: 02/25/20 22:50 Last Admin: 02/25/20 23:48 Dose: Not Given Documented by: Furosemide (Lasix) 20 mg IVPUSH ONETIME ONE Stop: 02/25/20 22:47 Last Admin: 02/25/20 23:48 Dose: 20 mg Documented by: Magnesium Sulfate (Magnesium Sulfate In Water Premix) 6 gm in 150 mls @ 25 mls/hr IV ONETIME ONE Stop: 02/26/20 02:08 Last Admin: 02/25/20 21:08 Dose: Not Given Documented by: Magnesium Sulfate (Magnesium Sulfate In Water Premix) 4 mls @ 300 mls/hr IV .BOLUS ADDY Magnesium Sulfate (Magnesium Sulfate In Water Premix) 2 gm in 50 mls @ 300 mls/hr IV .Q10M [facility] Stop: 02/25/20 21:14 Last Admin: 02/25/20 21:06 Dose: 300 mls/hr Documented by: Lisinopril (Prinivil) 20 mg PO DAILY [facility] Last Admin: 02/25/20 23:45 Dose: Not Given Documented by: Lisinopril (Prinivil) 20 mg PO DAILY [facility] Last Admin: 02/25/20 23:57 Dose: 20 mg Documented by: Lorazepam (Ativan) 0.5 mg IVPUSH ONETIME ONE Stop: 02/25/20 22:30 Last Admin: 02/25/20 22:35 Dose: 0.5 mg Documented by: Ondansetron HCl (Zofran) 4 mg IVPUSH ONETIME ONE Stop: 02/25/20 20:43 Last Admin: 02/25/20 23:48 Dose: Not Given Documented by: Sodium Chloride (Saline Flush) 10 ml FLUSH ASDIRECTED PRN PRN Reason: Keep Vein Open Last Admin: 02/25/20 20:33 Dose: 10 ml Documented by: - Exam General: Alert, Oriented, Cooperative HEENT: Pupils Equal, Pupils Reactive Neck: Supple Lungs: Clear to Auscultation, Normal Respiratory Effort Cardiovascular: Regular Rate, Regular Rhythm, No Murmurs GI/Abdominal Exam: Soft, Non-Tender (Female) Exam: Vaginal Bleeding Back Exam: Full Range of Motion, Other (tenderness at epidural site) Extremities: Other (lower leg edema, has decreased but remains present. Arms and hands are less edematous as well) Skin: Warm, Dry, Intact Wound/Incisions: Healing Well Neurological: No New Focal Deficit, Other (continues with DTRs being very brisk) Psy/Mental Status: Alert, Normal Affect, Other (sleepy from medications) Sepsis Event Note - Evaluation Sepsis Screening Result: No Definite Risk - Focused Exam Vital Signs: Vital Signs Temp Pulse Resp BP BP BP Pulse Ox 02/26/20 08:18 127/71 02/26/20 08:00 96.5 F L 91 18 127/71 98 02/26/20 07:00 129/78 94 L 02/26/20 06:00 110 H 16 121/91 H 02/26/20 05:00 117 H 18 125/83 02/26/20 04:00 100 16 113/65 02/26/20 03:00 103 H 18 119/64 02/26/20 02:00 95 18 112/68 02/26/20 01:00 96.8 F L 109 H 18 125/74 100 02/26/20 00:15 92 20 134/79 98 02/25/20 23:57 134/79 02/25/20 23:05 90 20 129/82 95 Pulse Ox 02/26/20 08:18 02/26/20 08:00 02/26/20 07:00 02/26/20 06:00 02/26/20 05:00 02/26/20 04:00 100 02/26/20 03:00 02/26/20 02:00 02/26/20 01:00 02/26/20 00:15 02/25/20 23:57 02/25/20 23:05 - Problem List & Annotations (1) GBS (group B streptococcus) infection SNOMED Code(s): 317391008 Code(s): A49.1 - STREPTOCOCCAL INFECTION, UNSPECIFIED SITE Status: Acute Current Visit: Yes (2) Preeclampsia in period SNOMED Code(s): 972069369, 624126873 Code(s): O14.95 - UNSPECIFIED PRE-ECLAMPSIA, COMPLICATING THE PUERPERIUM Status: Acute Priority: High Current Visit: Yes (3) Depressive disorder SNOMED Code(s): 30638841 Code(s): F32.9 - MAJOR DEPRESSIVE DISORDER, SINGLE EPISODE, UNSPECIFIED Status: Chronic Current Visit: No (4) Spinal headache SNOMED Code(s): 330621912 Code(s): G97.1 - OTHER REACTION TO SPINAL AND LUMBAR PUNCTURE Status: Acute Current Visit: Yes (5) complication SNOMED Code(s): 09674006 Code(s): O90.89 - OTH COMPLICATIONS OF THE PUERPERIUM, NEC Status: Acute Current Visit: Yes - Problem List Review Problem List Initiated/Reviewed/Updated: Yes - My Orders Last 24 Hours: My Active Orders 02/25/20 22:13 Patient Status [ADT] Routine Bedrest Bedside Commode [RC] ASDIRECTED Height and Weight [RC] UPON Intake and Output Strict [RC] ASDIRECTED Notify Provider [RC] PRN Notify Provider [RC] PRN Notify Provider [RC] PRN Notify Provider [RC] PRN Positioning, Left Lateral [RC] ASDIRECTED Vital Signs [RC] PER UNIT ROUTINE Sodium Chloride 0.9% [Saline Flush] 10 ml FLUSH ASDIRECTED PRN Deep Tendon Reflexes [WOMSER] Per Unit Routine Peripheral IV Insertion Adult [OM.PC] Routine Seizure Precautions [OM.PC] Routine Resuscitation Status Routine 02/25/20 22:15 Lactated Ringers [Ringers, Lactated] 1,000 ml IV ASDIRECTED 02/25/20 22:49 hydrALAZINE [Apresoline] 5 mg IVPUSH Q20M PRN 02/25/20 23:00 cefTRIAXone [Rocephin] 2 gm Sodium Chloride 0.9% [Normal Saline] 50 ml IV Q24H 02/25/20 23:30 Magnesium Sulfate/Water [Magnesium Sulfate in Water Premix] 40 gm in 1,000 ml IV ASDIRECTED 02/26/20 Breakfast Regular Diet [DIET] Calcium Gluconate 1 gm IVPUSH ONETIME PRN 02/26/20 08:03 Acetaminophen [Tylenol Extra Strength] 500 mg PO Q4H PRN 02/26/20 09:00 hydroCHLOROthiazide 25 mg PO DAILY lisinopriL [Prinivil] 20 mg PO DAILY 02/26/20 13:00 MAGNESIUM [CHEM] Q4H 02/26/20 17:00 MAGNESIUM [CHEM] Q4H - Assessment Assessment:: pre eclampsia, improved blood pressures with medications and diureses. currently is normotensive. spinal headache, has resolved with blood patch GDM no evidence of elevated blood sugars leukocytosis white count elevated, but is down from last night. history of GBS with . Plan continue magnesium at 2gm/her until tomorrow morning then will start decreasing and see how she does. Will continue blood pressure management and diureses, monitor pressures and I&O. Second dose of Rocephin tonight. Labs in AM. quiet room and rest today, most likely will have baby come tomorrow, also will increase activity and if all goes well can go home on Friday. - Plan Plan:: 19 year old vaginal delivered male infant several days ago. Complicated by GDM was insulin, hypertension was sent home on beta reinaldo, GBS positive and was treated in the hospital, prolonged labor with 30 hour epidural. Left AMA from the hospital. Now has spinal headache, preeclampsia, elevated white count baby is bottle feeding and with father non smoker Plan: Magnesium infusion, seizure precautions lisinopril 20 mg daily Lasix 20 mg IV tonight then HCTZ 25 mg daily Hydralazine if blood pressure increases 160/110 Rocephin 2 gm daily for GBS and elevated white count reassess in the AM 48-72 hour stay 02/26/20 see above
[2020-02-26] MEDS: Magnesium Sulfate/Water 40 GM/1,000 ML BAG IV SCH (15:58)
[2020-02-26] MEDS ORDERED: ALPRAZolam 0.25 MG Tab PO ONE (21:07)
[2020-02-26] MEDS: cefTRIAXone 2 GM in Sodium Chloride 0.9% 50 ML IV SCH (22:51)
[2020-02-27] MEDS: Lactated Ringers 1,000 ML IV SCH (00:49)
[2020-02-27] MEDS: Acetaminophen 500 MG Tab PO PRN ×4 (02:34→22:05)
[2020-02-27] MEDS: Hydrochlorothiazide 25 MG Tab PO SCH (08:27)
[2020-02-27] MEDS: Lisinopril 20 MG Tab PO SCH (08:27)
--- NOTE | 2020-02-27 10:11 | PCM.PNPP ---
- General Info Date of Service: 02/27/20 (4 days PP, severe preeclampsia) Admission Dx/Problem (Free Text): Patient Status Order with Admit Dx/Problem 02/25/20 22:13 Patient Status [ADT] Routine Admission Diagnosis/Problem Admission Diagnosis/Problem Pre-eclampsia, Functional Status: Reports: Pain Controlled, Tolerating Diet, Ambulating - Review of Systems General: Reports: Fatigue HEENT: Reports: No Symptoms Pulmonary: Reports: No Symptoms Cardiovascular: Reports: Edema (significantly improved, now just slightly puffy) Genitourinary: Reports: No Symptoms Musculoskeletal: Reports: Back Pain (tenderness at epidural site) Skin: Reports: No Symptoms Neurological: Denies: Headache Psychiatric: Reports: Anxiety - General Info Date of Service: 02/27/20 - Patient Data Vital Signs - Most Recent: Last Vital Signs Temp 97.2 F 02/27/20 02:35 Pulse 87 02/27/20 07:30 Resp 18 02/27/20 07:30 BP 142/87 H 02/27/20 08:27 Pulse Ox 98 02/27/20 07:30 Weight - Most Recent: 200 lb 6.4 oz I&O - Last 24 Hours: Intake & Output 02/26/20 02/27/20 02/27/20 22:59 06:59 14:59 Intake Total 1150 2501 Output Total 2400 1600 Balance -1250 901 Lab Results - Last 24 Hours: Laboratory Results - last 24 hr 02/26/20 02/26/20 02/26/20 Range/Units 12:53 16:52 21:09 WBC (4.5-11.0) K/uL RBC (3.30-5.50) M/uL Hgb (12.0-15.0) g/dL Hct (36.0-48.0) % MCV (80-98) fL MCH (27-31) pg MCHC (32-36) % Plt Count (150-400) K/uL Add Manual Diff Neutrophils % (Manual) (36-66) % Band Neutrophils % (5-11) % Lymphocytes % (Manual) (24-44) % Monocytes % (Manual) (2-6) % Eosinophils % (Manual) (2-4) % Sodium (140-148) mmol/L Potassium (3.6-5.2) mmol/L Chloride (100-108) mmol/L Carbon Dioxide (21-32) mmol/L Anion Gap (5.0-14.0) mmol/L BUN (7-18) mg/dL Creatinine (0.6-1.0) mg/dL Est Cr Clr Drug Dosing mL/min Estimated GFR (MDRD) (>60) Glucose (74-106) mg/dL Calcium (8.5-10.1) mg/dL Magnesium 6.6 H 6.1 H 6.5 H (1.8-2.4) mg/dL AST (15-37) U/L ALT (12-78) U/L Lactate Dehydrogenase (82-234) U/L Ur Random Creatinine (20.0-370.0) mg/dL U Random Total Protein (6.0-11.9) mg/dL Protein/Creatinin Ratio (21.0-161.0) mg/g 02/27/20 02/27/20 02/27/20 Range/Units 01:24 02:51 04:30 WBC 14.5 H (4.5-11.0) K/uL RBC 3.47 (3.30-5.50) M/uL Hgb 9.5 L (12.0-15.0) g/dL Hct 28.7 L (36.0-48.0) % MCV 83 (80-98) fL MCH 27 (27-31) pg MCHC 33 (32-36) % Plt Count 248 (150-400) K/uL Add Manual Diff Yes Neutrophils % (Manual) 68 H (36-66) % Band Neutrophils % 4 L (5-11) % Lymphocytes % (Manual) 20 L (24-44) % Monocytes % (Manual) 6 (2-6) % Eosinophils % (Manual) 2 (2-4) % Sodium (140-148) mmol/L Potassium (3.6-5.2) mmol/L Chloride (100-108) mmol/L Carbon Dioxide (21-32) mmol/L Anion Gap (5.0-14.0) mmol/L BUN (7-18) mg/dL Creatinine (0.6-1.0) mg/dL Est Cr Clr Drug Dosing mL/min Estimated GFR (MDRD) (>60) Glucose (74-106) mg/dL Calcium (8.5-10.1) mg/dL Magnesium 6.9 H (1.8-2.4) mg/dL AST (15-37) U/L ALT (12-78) U/L Lactate Dehydrogenase (82-234) U/L Ur Random Creatinine 35.0 (20.0-370.0) mg/dL U Random Total Protein 20.5 H (6.0-11.9) mg/dL Protein/Creatinin Ratio 585.7 H (21.0-161.0) mg/g 02/27/20 02/27/20 02/27/20 Range/Units 04:30 04:30 04:30 WBC (4.5-11.0) K/uL RBC (3.30-5.50) M/uL Hgb (12.0-15.0) g/dL Hct (36.0-48.0) % MCV (80-98) fL MCH (27-31) pg MCHC (32-36) % Plt Count (150-400) K/uL Add Manual Diff Neutrophils % (Manual) (36-66) % Band Neutrophils % (5-11) % Lymphocytes % (Manual) (24-44) % Monocytes % (Manual) (2-6) % Eosinophils % (Manual) (2-4) % Sodium 141 (140-148) mmol/L Potassium 3.3 L (3.6-5.2) mmol/L Chloride 105 (100-108) mmol/L Carbon Dioxide 25 (21-32) mmol/L Anion Gap 14.3 H (5.0-14.0) mmol/L BUN 8 (7-18) mg/dL Creatinine 0.7 (0.6-1.0) mg/dL Est Cr Clr Drug Dosing 116.32 mL/min Estimated GFR (MDRD) > 60 (>60) Glucose 92 (74-106) mg/dL Calcium 6.8 L* (8.5-10.1) mg/dL Magnesium 6.8 H (1.8-2.4) mg/dL AST 16 (15-37) U/L ALT 23 (12-78) U/L Lactate Dehydrogenase 254 H (82-234) U/L Ur Random Creatinine (20.0-370.0) mg/dL U Random Total Protein (6.0-11.9) mg/dL Protein/Creatinin Ratio (21.0-161.0) mg/g 02/27/20 Range/Units 09:37 WBC (4.5-11.0) K/uL RBC (3.30-5.50) M/uL Hgb (12.0-15.0) g/dL Hct (36.0-48.0) % MCV (80-98) fL MCH (27-31) pg MCHC (32-36) % Plt Count (150-400) K/uL Add Manual Diff Neutrophils % (Manual) (36-66) % Band Neutrophils % (5-11) % Lymphocytes % (Manual) (24-44) % Monocytes % (Manual) (2-6) % Eosinophils % (Manual) (2-4) % Sodium (140-148) mmol/L Potassium (3.6-5.2) mmol/L Chloride (100-108) mmol/L Carbon Dioxide (21-32) mmol/L Anion Gap (5.0-14.0) mmol/L BUN (7-18) mg/dL Creatinine (0.6-1.0) mg/dL Est Cr Clr Drug Dosing mL/min Estimated GFR (MDRD) (>60) Glucose (74-106) mg/dL Calcium (8.5-10.1) mg/dL Magnesium 5.7 H D (1.8-2.4) mg/dL AST (15-37) U/L ALT (12-78) U/L Lactate Dehydrogenase (82-234) U/L Ur Random Creatinine (20.0-370.0) mg/dL U Random Total Protein (6.0-11.9) mg/dL Protein/Creatinin Ratio (21.0-161.0) mg/g Med Orders - Current: Current Medications Acetaminophen (Tylenol Extra Strength) 500 mg PO Q4H PRN PRN Reason: muscle soreness Last Admin: 02/27/20 08:27 Dose: 500 mg Documented by: Calcium Gluconate (Calcium Gluconate) 1 gm IVPUSH ONETIME PRN PRN Reason: MAGNESIUM TOXICITY Hydralazine HCl (Apresoline) 5 mg IVPUSH Q20M PRN PRN Reason: Hypertension Hydrochlorothiazide (Hydrochlorothiazide) 25 mg PO DAILY ADDY Last Admin: 02/27/20 08:27 Dose: 25 mg Documented by: Magnesium Sulfate (Magnesium Sulfate In Water Premix) 40 gm in 1,000 mls @ 50 mls/hr IV ASDIRECTED ADDY; Protocol Last Titration: 02/27/20 06:06 Dose: 25 mls/hr Documented by: Lactated Ringer's (Ringers, Lactated) 1,000 mls @ 75 mls/hr IV ASDIRECTED ADDY Last Admin: 02/27/20 00:49 Dose: 125 mls/hr Documented by: Ceftriaxone Sodium 2 gm/ (Sodium Chloride) 50 mls @ 100 mls/hr IV Q24H ADDY Last Admin: 02/26/20 22:51 Dose: 100 mls/hr Documented by: Lisinopril (Prinivil) 20 mg PO DAILY [facility] Last Admin: 02/27/20 08:27 Dose: 20 mg Documented by: Sertraline HCl (Zoloft) 50 mg PO DAILY [facility] Sodium Chloride (Saline Flush) 10 ml FLUSH ASDIRECTED PRN PRN Reason: Keep Vein Open Discontinued Medications Alprazolam (Xanax) 0.5 mg PO ONETIME ONE Stop: 02/26/20 21:08 Last Admin: 02/26/20 21:15 Dose: 0.5 mg Documented by: Calcium Gluconate (Calcium Gluconate) 1 gm IVPUSH ONETIME ONE Stop: 02/25/20 22:50 Last Admin: 02/25/20 23:48 Dose: Not Given Documented by: Furosemide (Lasix) 20 mg IVPUSH ONETIME ONE Stop: 02/25/20 22:47 Last Admin: 02/25/20 23:48 Dose: 20 mg Documented by: Magnesium Sulfate (Magnesium Sulfate In Water Premix) 6 gm in 150 mls @ 25 mls/hr IV ONETIME ONE Stop: 02/26/20 02:08 Last Admin: 02/25/20 21:08 Dose: Not Given Documented by: Magnesium Sulfate (Magnesium Sulfate In Water Premix) 4 mls @ 300 mls/hr IV .BOLUS ADDY Magnesium Sulfate (Magnesium Sulfate In Water Premix) 2 gm in 50 mls @ 300 mls/hr IV .Q10M [facility] Stop: 02/25/20 21:14 Last Admin: 02/25/20 21:06 Dose: 300 mls/hr Documented by: Lisinopril (Prinivil) 20 mg PO DAILY [facility] Last Admin: 02/25/20 23:45 Dose: Not Given Documented by: Lisinopril (Prinivil) 20 mg PO DAILY [facility] Last Admin: 02/25/20 23:57 Dose: 20 mg Documented by: Lorazepam (Ativan) 0.5 mg IVPUSH ONETIME ONE Stop: 02/25/20 22:30 Last Admin: 02/25/20 22:35 Dose: 0.5 mg Documented by: Ondansetron HCl (Zofran) 4 mg IVPUSH ONETIME ONE Stop: 02/25/20 20:43 Last Admin: 02/25/20 23:48 Dose: Not Given Documented by: Sodium Chloride (Saline Flush) 10 ml FLUSH ASDIRECTED PRN PRN Reason: Keep Vein Open Last Admin: 02/25/20 20:33 Dose: 10 ml Documented by: - Recovery Exam Fundal Tone: Firm Fundal Level: 2 Fingerbreadths Below Umbilicus Fundal Placement: Midline Lochia Amount: Small, Moderate Lochia Color: Rubra/Red Perineum Description: Intact, Minimal Bruising/Swelling Bladder Status: Voiding - Exam General: Alert, Oriented, Cooperative HEENT: Pupils Equal Lungs: Clear to Auscultation, Normal Respiratory Effort Cardiovascular: Regular Rate, Regular Rhythm GI/Abdominal Exam: Soft, Non-Tender Extremities: Normal Range of Motion, No Pedal Edema, Normal Capillary Refill, Other (Slight puffy feet, legs and hands edema resolved.) Skin: Warm, Dry Neurological: Other (DTRs brisk but now normal) Psy/Mental Status: Alert, Normal Affect, Anxious - Problem List & Annotations (1) GBS (group B streptococcus) infection SNOMED Code(s): 427110646 Code(s): A49.1 - STREPTOCOCCAL INFECTION, UNSPECIFIED SITE Status: Acute Current Visit: Yes (2) Preeclampsia in period SNOMED Code(s): 289098461, 890532093 Code(s): O14.95 - UNSPECIFIED PRE-ECLAMPSIA, COMPLICATING THE PUERPERIUM Status: Acute Priority: High Current Visit: Yes (3) Depressive disorder SNOMED Code(s): 71947706 Code(s): F32.9 - MAJOR DEPRESSIVE DISORDER, SINGLE EPISODE, UNSPECIFIED Status: Chronic Current Visit: No (4) Spinal headache SNOMED Code(s): 524236676 Code(s): G97.1 - OTHER REACTION TO SPINAL AND LUMBAR PUNCTURE Status: Acute Current Visit: Yes (5) complication SNOMED Code(s): 36901200 Code(s): O90.89 - OTH COMPLICATIONS OF THE PUERPERIUM, NEC Status: Acute Current Visit: Yes - Problem List Review Problem List Initiated/Reviewed/Updated: Yes - My Orders Last 24 Hours: My Active Orders 02/27/20 09:20 Activity as Tolerated [RC] .Routine Communication Order [RC] ROUTINE 02/27/20 09:21 Communication Order [RC] ROUTINE 02/27/20 09:56 Positioning, Left Lateral [RC] ASDIRECTED 02/27/20 10:00 Sertraline [Zoloft] 50 mg PO DAILY 02/27/20 13:00 MAGNESIUM [CHEM] Q4H 02/27/20 16:00 Convert IV to Saline Lock [OM.PC] Routine 02/27/20 17:00 MAGNESIUM [CHEM] Q4H 02/27/20 21:00 MAGNESIUM [CHEM] Q4H 02/28/20 01:00 MAGNESIUM [CHEM] Q4H 02/28/20 05:00 MAGNESIUM [CHEM] Q4H 02/28/20 05:11 BASIC METABOLIC PANEL,BMP [CHEM] AM CBC WITH AUTO DIFF [HEME] AM LACTATE DEHYDROGENASE,LDH [CHEM] AM PROTEIN/CREATININE RATIO,URINE [URCHEM] AM 02/28/20 09:00 MAGNESIUM [CHEM] Q4H 02/28/20 13:00 MAGNESIUM [CHEM] Q4H 02/28/20 17:00 MAGNESIUM [CHEM] Q4H - Assessment Assessment:: pre eclampsia, improved blood pressures with medications and diureses. currently is normotensive. spinal headache, has resolved with blood patch GDM no evidence of elevated blood sugars leukocytosis white count elevated, but is down from last night. history of GBS with . Plan continue magnesium at 2gm/her until tomorrow morning then will start decreasing and see how she does. Will continue blood pressure management and diureses, monitor pressures and I&O. Second dose of Rocephin tonight. Labs in AM. quiet room and rest today, most likely will have baby come tomorrow, also will increase activity and if all goes well can go home on Friday. 02/27/20 Preeclampsia, improved weight down 20 pounds, currently normotensive Spinal headache resolved elevated white count improved depression/anxiety, will restart medication today control discussion Bottle feeding - Plan Plan:: 19 year old vaginal delivered male several days ago. Complicated by GDM was insulin, hypertension was sent home on beta reinaldo, GBS positive and was treated in the hospital, prolonged labor with 30 hour epidural. Left AMA from the hospital. Now has spinal headache, preeclampsia, elevated white count baby is bottle feeding and with father non smoker Plan: Magnesium infusion, seizure precautions lisinopril 20 mg daily Lasix 20 mg IV tonight then HCTZ 25 mg daily Hydralazine if blood pressure increases 160/110 Rocephin 2 gm daily for GBS and elevated white count reassess in the AM 48-72 hour stay 02/26/20 see above 02/27/20 Decreasing and hopefully stopping Magnesium today, labs have improved Continue Lisinopril 20 mg times 6 weeks HCTZ 25 mg continue until day 5 post discharge D/C Rocephin Start Zoloft 50 mg daily for depression and anxiety Mini pill plus condoms for control, No sex times six weeks Discharge tomorrow if stable and doing well Baby to come visit today Has WIC Wants to see Jaison Gilliam NP for baby cares See me one week post discharge for follow up Hypertension
[2020-02-27] MEDS: Sertraline 50 MG Tab PO SCH (11:35)
[2020-02-28] MEDS: Acetaminophen 500 MG Tab PO PRN (07:42)
--- NOTE | 2020-02-28 08:52 | PCM.PNPP ---
- General Info Date of Service: 02/28/20 Functional Status: Reports: Pain Controlled - Review of Systems General: Reports: No Symptoms HEENT: Reports: Headaches (constant very dull). Denies: Visual Changes Pulmonary: Reports: No Symptoms Cardiovascular: Reports: No Symptoms Gastrointestinal: Reports: No Symptoms Genitourinary: Reports: No Symptoms Musculoskeletal: Reports: No Symptoms Skin: Reports: No Symptoms Neurological: Reports: No Symptoms Psychiatric: Reports: No Symptoms - General Info Date of Service: 02/28/20 - Patient Data Vital Signs - Most Recent: Last Vital Signs Temp 37.1 C 02/28/20 07:44 Pulse 86 02/28/20 07:44 Resp 16 02/28/20 07:44 BP 140/88 02/28/20 07:44 Pulse Ox 97 02/28/20 07:44 Weight - Most Recent: 89.176 kg I&O - Last 24 Hours: Intake & Output 02/27/20 02/28/20 02/28/20 22:59 06:59 14:59 Intake Total 2028 Output Total 1999 200 Balance 29 -200 Lab Results - Last 24 Hours: Laboratory Results - last 24 hr 02/27/20 02/27/20 02/27/20 Range/Units 09:37 12:45 17:00 WBC (4.5-11.0) K/uL RBC (3.30-5.50) M/uL Hgb (12.0-15.0) g/dL Hct (36.0-48.0) % MCV (80-98) fL MCH (27-31) pg MCHC (32-36) % Plt Count (150-400) K/uL Neut % (Auto) (36-66) % Lymph % (Auto) (24-44) % [place] % (Auto) (2-6) % Eos % (Auto) (2-4) % Baso % (Auto) (0-1) % Sodium (140-148) mmol/L Potassium (3.6-5.2) mmol/L Chloride (100-108) mmol/L Carbon Dioxide (21-32) mmol/L Anion Gap (5.0-14.0) mmol/L BUN (7-18) mg/dL Creatinine (0.6-1.0) mg/dL Est Cr Clr Drug Dosing mL/min Estimated GFR (MDRD) (>60) Glucose (74-106) mg/dL Calcium (8.5-10.1) mg/dL Magnesium 5.7 H D 5.4 H 4.5 H D (1.8-2.4) mg/dL Lactate Dehydrogenase (82-234) U/L 02/28/20 02/28/20 02/28/20 Range/Units 05:48 05:48 06:56 WBC 15.5 H (4.5-11.0) K/uL RBC 3.72 (3.30-5.50) M/uL Hgb 10.0 L (12.0-15.0) g/dL Hct 30.7 L (36.0-48.0) % MCV 83 (80-98) fL MCH 27 (27-31) pg MCHC 33 (32-36) % Plt Count 301 (150-400) K/uL Neut % (Auto) 82 H (36-66) % Lymph % (Auto) 12 L (24-44) % [place] % (Auto) 5 (2-6) % Eos % (Auto) 1 L (2-4) % Baso % (Auto) 0 (0-1) % Sodium 141 (140-148) mmol/L Potassium 3.6 (3.6-5.2) mmol/L Chloride 106 (100-108) mmol/L Carbon Dioxide 25 (21-32) mmol/L Anion Gap 9.7 (5.0-14.0) mmol/L BUN 11 (7-18) mg/dL Creatinine 0.8 (0.6-1.0) mg/dL Est Cr Clr Drug Dosing 101.78 mL/min Estimated GFR (MDRD) > 60 (>60) Glucose 86 (74-106) mg/dL Calcium 8.3 L D (8.5-10.1) mg/dL Magnesium 2.8 H D (1.8-2.4) mg/dL Lactate Dehydrogenase 242 H (82-234) U/L Med Orders - Current: Current Medications Acetaminophen (Tylenol Extra Strength) 500 mg PO Q4H PRN PRN Reason: muscle soreness Last Admin: 02/28/20 07:42 Dose: 500 mg Documented by: Calcium Gluconate (Calcium Gluconate) 1 gm IVPUSH ONETIME PRN PRN Reason: MAGNESIUM TOXICITY Hydralazine HCl (Apresoline) 5 mg IVPUSH Q20M PRN PRN Reason: Hypertension Hydrochlorothiazide (Hydrochlorothiazide) 25 mg PO DAILY [facility] Last Admin: 02/27/20 08:27 Dose: 25 mg Documented by: Lisinopril (Prinivil) 20 mg PO DAILY [facility] Last Admin: 02/27/20 08:27 Dose: 20 mg Documented by: Sertraline HCl (Zoloft) 50 mg PO DAILY [facility] Last Admin: 02/27/20 11:35 Dose: 50 mg Documented by: Sodium Chloride (Saline Flush) 10 ml FLUSH ASDIRECTED PRN PRN Reason: Keep Vein Open Discontinued Medications Alprazolam (Xanax) 0.5 mg PO ONETIME ONE Stop: 02/26/20 21:08 Last Admin: 02/26/20 21:15 Dose: 0.5 mg Documented by: Calcium Gluconate (Calcium Gluconate) 1 gm IVPUSH ONETIME ONE Stop: 02/25/20 22:50 Last Admin: 02/25/20 23:48 Dose: Not Given Documented by: Furosemide (Lasix) 20 mg IVPUSH ONETIME ONE Stop: 02/25/20 22:47 Last Admin: 02/25/20 23:48 Dose: 20 mg Documented by: Magnesium Sulfate (Magnesium Sulfate In Water Premix) 6 gm in 150 mls @ 25 mls/hr IV ONETIME ONE Stop: 02/26/20 02:08 Last Admin: 02/25/20 21:08 Dose: Not Given Documented by: Magnesium Sulfate (Magnesium Sulfate In Water Premix) 40 gm in 1,000 mls @ 50 mls/hr IV ASDIRECTED ADDY; Protocol Last Titration: 02/27/20 11:52 Dose: 12.5 mls/hr Documented by: Magnesium Sulfate (Magnesium Sulfate In Water Premix) 4 mls @ 300 mls/hr IV .BOLUS ADDY Magnesium Sulfate (Magnesium Sulfate In Water Premix) 2 gm in 50 mls @ 300 mls/hr IV .Q10M [facility] Stop: 02/25/20 21:14 Last Admin: 02/25/20 21:06 Dose: 300 mls/hr Documented by: Lactated Ringer's (Ringers, Lactated) 1,000 mls @ 75 mls/hr IV ASDIRECTED ADDY Last Infusion: 02/27/20 11:52 Dose: Infused Documented by: Ceftriaxone Sodium 2 gm/ (Sodium Chloride) 50 mls @ 100 mls/hr IV Q24H [facility] Last Admin: 02/26/20 22:51 Dose: 100 mls/hr Documented by: Lisinopril (Prinivil) 20 mg PO DAILY [facility] Last Admin: 02/25/20 23:45 Dose: Not Given Documented by: Lisinopril (Prinivil) 20 mg PO DAILY [facility] Last Admin: 02/25/20 23:57 Dose: 20 mg Documented by: Lorazepam (Ativan) 0.5 mg IVPUSH ONETIME ONE Stop: 02/25/20 22:30 Last Admin: 02/25/20 22:35 Dose: 0.5 mg Documented by: Ondansetron HCl (Zofran) 4 mg IVPUSH ONETIME ONE Stop: 02/25/20 20:43 Last Admin: 02/25/20 23:48 Dose: Not Given Documented by: Sodium Chloride (Saline Flush) 10 ml FLUSH ASDIRECTED PRN PRN Reason: Keep Vein Open Last Admin: 02/25/20 20:33 Dose: 10 ml Documented by: - Infant Interaction Disposition, : [place] in Room with Family Infant Feeding: Bottle Fed Support Person: Other (see below) (grandmother today) - Recovery Exam Fundal Tone: Firm Fundal Level: 2 Fingerbreadths Below Umbilicus Fundal Placement: Midline Lochia Amount: Small Lochia Color: Rubra/Red Perineum Description: Intact, Minimal Bruising/Swelling Bladder Status: Voiding - Exam General: Alert, Oriented. No: Lethargic HEENT: Pupils Equal, Pupils Reactive, Mucous Membr. Moist/[place]: Supple Lungs: Clear to Auscultation, Normal Respiratory Effort Cardiovascular: Regular Rate, Regular Rhythm. No: No Murmurs GI/Abdominal Exam: Normal Bowel Sounds, Soft, Non-Tender, No Distention Extremities: Normal Inspection, Normal Range of Motion, Non-Tender, Normal Capillary Refill, Pedal Edema (trace to 1+) Skin: Warm, Dry, Intact Neurological: No New Focal Deficit Psy/Mental Status: Alert, Normal Affect, Normal Mood Physical Findings Comment:: 3+ hyperactive reflexes bilateral LE's 2 beats clonus left foot - Problem List & Annotations (1) GBS (group B streptococcus) infection SNOMED Code(s): 708141727 Code(s): A49.1 - STREPTOCOCCAL INFECTION, UNSPECIFIED SITE Status: Acute Current Visit: Yes (2) complication SNOMED Code(s): 02754922 Code(s): O90.89 - OTH COMPLICATIONS OF THE PUERPERIUM, NEC Status: Acute Current Visit: Yes (3) Preeclampsia in period SNOMED Code(s): 448534976, 601801716 Code(s): O14.95 - UNSPECIFIED PRE-ECLAMPSIA, COMPLICATING THE PUERPERIUM Status: Acute Priority: High Current Visit: Yes (4) Spinal headache SNOMED Code(s): 363267863 Code(s): G97.1 - OTHER REACTION TO SPINAL AND LUMBAR PUNCTURE Status: Acute Current Visit: Yes (5) Depressive disorder SNOMED Code(s): 85741270 Code(s): F32.9 - MAJOR DEPRESSIVE DISORDER, SINGLE EPISODE, UNSPECIFIED Status: Chronic Current Visit: No - Problem List Review Problem List Initiated/Reviewed/Updated: Yes - My Orders Last 24 Hours: My Active Orders 02/28/20 08:45 Amoxicillin [Amoxil] 500 mg PO Q8H metroNIDAZOLE 500 mg PO Q8H - Assessment Assessment:: pre eclampsia, improved blood pressures with medications and diureses. currently is normotensive. spinal headache, has resolved with blood patch GDM no evidence of elevated blood sugars leukocytosis white count elevated, but is down from last night. history of GBS with . Plan continue magnesium at 2gm/her until tomorrow morning then will start decreasing and see how she does. Will continue blood pressure management and diureses, monitor pressures and I&O. Second dose of Rocephin tonight. Labs in AM. quiet room and rest today, most likely will have baby come tomorrow, also will increase activity and if all goes well can go home on Friday. 02/27/20 Preeclampsia, improved weight down 20 pounds, currently normotensive Spinal headache resolved elevated white count improved depression/anxiety, will restart medication today control discussion Bottle feeding 02/28/20 WBC count increased from 14.5 to 15.5 today, no fever or abdominal discomfort, will treat like endometritis Hgb improved to 10 Other labs are improving, waiting on Pr/Cr urine ratio today Magnesium has been off since 4 pm yesterday BP's 139-140/87-90, just at goal 3+ reflexes BLE, 2 beats clonus left foot No visual disturbances, does have a dull headache that is much improved though - Plan Plan:: 19 year old vaginal delivered male infant several days ago. Complicated by GDM was insulin, hypertension was sent home on beta reinaldo, GBS positive and was treated in the hospital, prolonged labor with 30 hour epidural. Left AMA from the hospital. Now has spinal headache, preeclampsia, elevated white count baby is bottle feeding and with father non smoker Plan: Magnesium infusion, seizure precautions lisinopril 20 mg daily Lasix 20 mg IV tonight then HCTZ 25 mg daily Hydralazine if blood pressure increases 160/110 Rocephin 2 gm daily for GBS and elevated white count reassess in the AM 48-72 hour stay 02/26/20 see above 02/27/20 Decreasing and hopefully stopping Magnesium today, labs have improved Continue Lisinopril 20 mg times 6 weeks HCTZ 25 mg continue until day 5 post discharge D/C Rocephin Start Zoloft 50 mg daily for depression and anxiety Mini pill plus condoms for control, No sex times six weeks Discharge tomorrow if stable and doing well Baby to come visit today Has WIC Wants to see Jaison Gilliam NP for baby cares See me one week post discharge for follow up Hypertension 02/28/20 Monitor for at least 24 hours off of magnesium to be sure BP's stay at goal before discharge Adding oral antibiotics for elevated WBC Educated on the importance of not getting or on these medications Has a blood pressure cuff at home and can take BP BID at home. She also has a lot of support and is able to rest. No more than 20 minutes up at one time until BP's stabilize.
[2020-02-28] MEDS: Lisinopril 20 MG Tab PO SCH (09:00)
[2020-02-28] MEDS: Hydrochlorothiazide 25 MG Tab PO SCH (09:00)
[2020-02-28] MEDS: Sertraline 50 MG Tab PO SCH (09:01)
[2020-02-28] MEDS: Amoxicillin 500 MG Cap PO SCH ×2 (10:34→17:44)
[2020-02-28] MEDS: metroNIDAZOLE 250 MG Tab PO SCH ×2 (10:34→17:44)
--- NOTE | 2020-02-28 16:53 | PCM.SN.2 ---
- Free Text/Narrative Note: S: Patient declines headache or visual disturbances. She declines any s/s of preeclampsia. O: BP has been more stable today but now after 24 hours off of IV magnesium her last BP was 145/80. Pulse is slightly tachycardic and last temp was 99. A: Patient is voiding in good amounts Asymptomatic BP's somewhat stable but increasing over the afternoon Monitoring for s/s of infection P: Monitor BP every 2 hours overnight, call provider if >160/100 Continue oral antibiotics If consistently >150/90 tomorrow add another BP medicine Anticipate discharge home tomorrow morning if labs and BP's remain stable Patient is agreeable to this plan Start baby aspirin daily
[2020-02-28] MEDS: Aspirin 81 MG Tab.EC PO SCH (17:44)
[2020-02-29] MEDS: metroNIDAZOLE 250 MG Tab PO SCH ×2 (01:13→10:09)
[2020-02-29] MEDS: Amoxicillin 500 MG Cap PO SCH ×2 (01:13→10:08)
[2020-02-29 07:43] VITALS: PULSE 88
--- NOTE | 2020-02-29 08:35 | PCM.PNPP ---
- General Info Date of Service: 02/29/20 Functional Status: Reports: Pain Controlled - Review of Systems General: Reports: No Symptoms HEENT: Reports: No Symptoms. Denies: Headaches Pulmonary: Reports: No Symptoms. Denies: Shortness of Breath Cardiovascular: Reports: No Symptoms. Denies: Chest Pain, Edema Gastrointestinal: Reports: No Symptoms Genitourinary: Reports: No Symptoms Musculoskeletal: Reports: No Symptoms Skin: Reports: No Symptoms Neurological: Reports: No Symptoms. Denies: Dizziness, Headache, Weakness Psychiatric: Reports: No Symptoms - General Info Date of Service: 02/29/20 - Patient Data Vital Signs - Most Recent: Last Vital Signs Temp 36.1 C 02/29/20 07:40 Pulse 88 02/29/20 07:40 Resp 16 02/29/20 07:40 BP 149/84 H 02/29/20 07:40 Pulse Ox 95 02/29/20 07:40 Weight - Most Recent: 89.176 kg I&O - Last 24 Hours: Intake & Output 02/28/20 02/29/20 02/29/20 22:59 06:59 14:59 Intake Total 1000 Output Total 500 1200 Balance -500 -200 Lab Results - Last 24 Hours: Laboratory Results - last 24 hr 02/28/20 02/29/20 02/29/20 Range/Units 05:11 05:55 05:55 WBC (4.5-11.0) K/uL RBC (3.30-5.50) M/uL Hgb (12.0-15.0) g/dL Hct (36.0-48.0) % MCV (80-98) fL MCH (27-31) pg MCHC (32-36) % Plt Count (150-400) K/uL Add Manual Diff Sodium 139 L (140-148) mmol/L Potassium 4.0 (3.6-5.2) mmol/L Chloride 104 (100-108) mmol/L Carbon Dioxide 24 (21-32) mmol/L Anion Gap 15.0 H (5.0-14.0) mmol/L BUN 15 (7-18) mg/dL Creatinine 0.9 (0.6-1.0) mg/dL Est Cr Clr Drug Dosing 90.47 mL/min Estimated GFR (MDRD) > 60 (>60) Glucose 94 (74-106) mg/dL Calcium 9.0 (8.5-10.1) mg/dL Magnesium 1.9 D (1.8-2.4) mg/dL Total Bilirubin 0.4 (0.2-1.0) mg/dL AST 13 L (15-37) U/L ALT 22 (12-78) U/L Alkaline Phosphatase 135 H (46-116) U/L Lactate Dehydrogenase 247 H (82-234) U/L Total Protein 7.0 (6.4-8.2) g/dL Albumin 2.9 L (3.4-5.0) g/dL Globulin 4.1 H (2.3-3.5) g/dL Albumin/Globulin Ratio 0.7 L (1.2-2.2) Ur Random Creatinine 58.7 (20.0-370.0) mg/dL U Random Total Protein 28.4 H (6.0-11.9) mg/dL Protein/Creatinin Ratio 483.8 H (21.0-161.0) mg/g 02/29/20 02/29/20 Range/Units 07:54 08:13 WBC 16.3 H (4.5-11.0) K/uL RBC 4.24 (3.30-5.50) M/uL Hgb 11.0 L (12.0-15.0) g/dL Hct 35.2 L (36.0-48.0) % MCV 83 (80-98) fL MCH 26 L (27-31) pg MCHC 31 L (32-36) % Plt Count 355 (150-400) K/uL Add Manual Diff Yes Sodium (140-148) mmol/L Potassium (3.6-5.2) mmol/L Chloride (100-108) mmol/L Carbon Dioxide (21-32) mmol/L Anion Gap (5.0-14.0) mmol/L BUN (7-18) mg/dL Creatinine (0.6-1.0) mg/dL Est Cr Clr Drug Dosing mL/min Estimated GFR (MDRD) (>60) Glucose (74-106) mg/dL Calcium (8.5-10.1) mg/dL Magnesium (1.8-2.4) mg/dL Total Bilirubin (0.2-1.0) mg/dL AST (15-37) U/L ALT (12-78) U/L Alkaline Phosphatase (46-116) U/L Lactate Dehydrogenase (82-234) U/L Total Protein (6.4-8.2) g/dL Albumin (3.4-5.0) g/dL Globulin (2.3-3.5) g/dL Albumin/Globulin Ratio (1.2-2.2) Ur Random Creatinine 107.8 (20.0-370.0) mg/dL U Random Total Protein 30.1 H (6.0-11.9) mg/dL Protein/Creatinin Ratio 279.2 H (21.0-161.0) mg/g Med Orders - Current: Current Medications Acetaminophen (Tylenol Extra Strength) 500 mg PO Q4H PRN PRN Reason: muscle soreness Last Admin: 02/28/20 07:42 Dose: 500 mg Documented by: Amoxicillin (Amoxil) 500 mg PO Q8H [facility] Last Admin: 02/29/20 01:13 Dose: 500 mg Documented by: Aspirin (Halfprin) 81 mg PO DAILY [facility] Last Admin: 02/28/20 17:44 Dose: 81 mg Documented by: Calcium Gluconate (Calcium Gluconate) 1 gm IVPUSH ONETIME PRN PRN Reason: MAGNESIUM TOXICITY Hydralazine HCl (Apresoline) 5 mg IVPUSH Q20M PRN PRN Reason: Hypertension Hydrochlorothiazide (Hydrochlorothiazide) 25 mg PO DAILY [facility] Last Admin: 02/28/20 09:00 Dose: 25 mg Documented by: Lisinopril (Prinivil) 20 mg PO DAILY [facility] Last Admin: 02/28/20 09:00 Dose: 20 mg Documented by: Metronidazole (Metronidazole) 500 mg PO Q8H [facility] Last Admin: 02/29/20 01:13 Dose: 500 mg Documented by: Sertraline HCl (Zoloft) 50 mg PO DAILY [facility] Last Admin: 02/28/20 09:01 Dose: 50 mg Documented by: Sodium Chloride (Saline Flush) 10 ml FLUSH ASDIRECTED PRN PRN Reason: Keep Vein Open Discontinued Medications Alprazolam (Xanax) 0.5 mg PO ONETIME ONE Stop: 02/26/20 21:08 Last Admin: 02/26/20 21:15 Dose: 0.5 mg Documented by: Calcium Gluconate (Calcium Gluconate) 1 gm IVPUSH ONETIME ONE Stop: 02/25/20 22:50 Last Admin: 02/25/20 23:48 Dose: Not Given Documented by: Furosemide (Lasix) 20 mg IVPUSH ONETIME ONE Stop: 02/25/20 22:47 Last Admin: 02/25/20 23:48 Dose: 20 mg Documented by: Magnesium Sulfate (Magnesium Sulfate In Water Premix) 6 gm in 150 mls @ 25 mls/hr IV ONETIME ONE Stop: 02/26/20 02:08 Last Admin: 02/25/20 21:08 Dose: Not Given Documented by: Magnesium Sulfate (Magnesium Sulfate In Water Premix) 40 gm in 1,000 mls @ 50 mls/hr IV ASDIRECTED ADDY; Protocol Last Titration: 02/27/20 11:52 Dose: 12.5 mls/hr Documented by: Magnesium Sulfate (Magnesium Sulfate In Water Premix) 4 mls @ 300 mls/hr IV .BOLUS ADDY Magnesium Sulfate (Magnesium Sulfate In Water Premix) 2 gm in 50 mls @ 300 mls/hr IV .Q10M ADDY Stop: 02/25/20 21:14 Last Admin: 02/25/20 21:06 Dose: 300 mls/hr Documented by: Lactated Ringer's (Ringers, Lactated) 1,000 mls @ 75 mls/hr IV ASDIRECTED [facility] Last Infusion: 02/27/20 11:52 Dose: Infused Documented by: Ceftriaxone Sodium 2 gm/ (Sodium Chloride) 50 mls @ 100 mls/hr IV Q24H [facility] Last Admin: 02/26/20 22:51 Dose: 100 mls/hr Documented by: Lisinopril (Prinivil) 20 mg PO DAILY [facility] Last Admin: 02/25/20 23:45 Dose: Not Given Documented by: Lisinopril (Prinivil) 20 mg PO DAILY [facility] Last Admin: 02/25/20 23:57 Dose: 20 mg Documented by: Lorazepam (Ativan) 0.5 mg IVPUSH ONETIME ONE Stop: 02/25/20 22:30 Last Admin: 02/25/20 22:35 Dose: 0.5 mg Documented by: Ondansetron HCl (Zofran) 4 mg IVPUSH ONETIME ONE Stop: 02/25/20 20:43 Last Admin: 02/25/20 23:48 Dose: Not Given Documented by: Sodium Chloride (Saline Flush) 10 ml FLUSH ASDIRECTED PRN PRN Reason: Keep Vein Open Last Admin: 02/25/20 20:33 Dose: 10 ml Documented by: - Infant Interaction Infant Disposition, : [place] in Room with Family Interaction: Holding Infant Infant Feeding: Bottle Fed Infant Support Person: Other (see below) (grandmother today) - Recovery Exam Fundal Tone: Firm Fundal Level: 2 Fingerbreadths Below Umbilicus Fundal Placement: Midline Lochia Amount: Small Lochia Color: Rubra/Red Perineum Description: Intact, Minimal Bruising/Swelling Episiotomy/Laceration: None Bladder Status: Voiding Urinary Elimination: Voided - Exam General: Alert, Oriented. No: No Acute Distress, Lethargic HEENT: Pupils Equal, Pupils Reactive, EOMI, Mucous Membr. Moist/[place] Neck: Supple Lungs: Clear to Auscultation, Normal Respiratory Effort Cardiovascular: Regular Rate, Regular Rhythm GI/Abdominal Exam: Normal Bowel Sounds, Soft, Non-Tender, No Distention, Pelvis Stable Extremities: Normal Inspection, Normal Range of Motion, Non-Tender, No Pedal Edema, Normal Capillary Refill Skin: Warm, Dry, Intact Neurological: No New Focal Deficit Psy/Mental Status: Alert, Normal Affect, Normal Mood - Problem List & Annotations (1) GBS (group B streptococcus) infection SNOMED Code(s): 430645390 Code(s): A49.1 - STREPTOCOCCAL INFECTION, UNSPECIFIED SITE Status: Acute Current Visit: Yes (2) complication SNOMED Code(s): 54761329 Code(s): O90.89 - OTH COMPLICATIONS OF THE PUERPERIUM, NEC Status: Acute Current Visit: Yes (3) Preeclampsia in period SNOMED Code(s): 327399624, 505092917 Code(s): O14.95 - UNSPECIFIED PRE-ECLAMPSIA, COMPLICATING THE PUERPERIUM Status: Acute Priority: High Current Visit: Yes (4) Spinal headache SNOMED Code(s): 310328446 Code(s): G97.1 - OTHER REACTION TO SPINAL AND LUMBAR PUNCTURE Status: Acute Current Visit: Yes (5) Depressive disorder SNOMED Code(s): 57523217 Code(s): F32.9 - MAJOR DEPRESSIVE DISORDER, SINGLE EPISODE, UNSPECIFIED Status: Chronic Current Visit: No - Problem List Review Problem List Initiated/Reviewed/Updated: Yes - My Orders Last 24 Hours: My Active Orders 02/28/20 09:00 Amoxicillin [Amoxil] 500 mg PO Q8H metroNIDAZOLE 500 mg PO Q8H 02/28/20 16:45 Aspirin [Halfprin] 81 mg PO DAILY 02/29/20 08:13 CBC WITH AUTO DIFF [HEME] Routine 02/29/20 08:20 Ready for Discharge [RC] PER UNIT ROUTINE 03/01/20 05:11 CBC WITH AUTO DIFF [HEME] AM - Assessment Assessment:: pre eclampsia, improved blood pressures with medications and diureses. currently is normotensive. spinal headache, has resolved with blood patch GDM no evidence of elevated blood sugars leukocytosis white count elevated, but is down from last night. history of GBS with . Plan continue magnesium at 2gm/her until tomorrow morning then will start decreasing and see how she does. Will continue blood pressure management and diureses, monitor pressures and I&O. Second dose of Rocephin tonight. Labs in AM. quiet room and rest today, most likely will have baby come tomorrow, also will increase activity and if all goes well can go home on Friday. 02/27/20 Preeclampsia, improved weight down 20 pounds, currently normotensive Spinal headache resolved elevated white count improved depression/anxiety, will restart medication today control discussion Bottle feeding 02/28/20 WBC count increased from 14.5 to 15.5 today, no fever or abdominal discomfort, will treat like endometritis Hgb improved to 10 Other labs are improving, waiting on Pr/Cr urine ratio today Magnesium has been off since 4 pm yesterday BP's 139-140/87-90, just at goal 3+ reflexes BLE, 2 beats clonus left foot No visual disturbances, does have a dull headache that is much improved though 02/29/20 WBC increased to 16.3 today with one day of oral antibiotics done. She does not have a fever, no abdominal tenderness, questioning some endometritis Liver enzymes stable, Protein/Cr ratio is much improved BP's mostly normotensive overnight She declines any symptoms of preeclampsia such as blurred vision or headache Swelling is mostly gone, reflexes are normal today, no clonus Hgb improved to 11 - Plan Plan:: 19 year old vaginal delivered male infant several days ago. Complicated by GDM was insulin, hypertension was sent home on beta reinaldo, GBS positive and was treated in the hospital, prolonged labor with 30 hour epidural. Left AMA from the hospital. Now has spinal headache, preeclampsia, elevated white count baby is bottle feeding and with father non smoker Plan: Magnesium infusion, seizure precautions lisinopril 20 mg daily Lasix 20 mg IV tonight then HCTZ 25 mg daily Hydralazine if blood pressure increases 160/110 Rocephin 2 gm daily for GBS and elevated white count reassess in the AM 48-72 hour stay 02/26/20 see above 02/27/20 Decreasing and hopefully stopping Magnesium today, labs have improved Continue Lisinopril 20 mg times 6 weeks HCTZ 25 mg continue until day 5 post discharge D/C Rocephin Start Zoloft 50 mg daily for depression and anxiety Mini pill plus condoms for control, No sex times six weeks Discharge tomorrow if stable and doing well Baby to come visit today Has WIC Wants to see Jaison Gilliam NP for baby cares See me one week post discharge for follow up Hypertension 02/28/20 Monitor for at least 24 hours off of magnesium to be sure BP's stay at goal before discharge Adding oral antibiotics for elevated WBC Educated on the importance of not getting or on these medications Has a blood pressure cuff at home and can take BP BID at home. She also has a lot of support and is able to rest. No more than 20 minutes up at one time until BP's stabilize. 02/29/20 Discharge home today with support of family, up for short periods of time, mostly bedrest was discussed, not being up over 20 minutes at a time Discharging on lisinopril 20 mg daily for 6 weeks, HCTZ 25 mg for 5 more days, Zoloft 50 mg daily, Minipill for control, and Amoxicillin 500 mg TID along with Flagyl 500 mg TID for 9 additional days for possible endometritis. Follow up Friday in the clinic with labs first Check BP BID at home, call if >160/100 Call if fever or other complications
[2020-02-29] MEDS: Aspirin 81 MG Tab.EC PO SCH (10:08)
[2020-02-29] MEDS: Lisinopril 20 MG Tab PO SCH (10:09)
[2020-02-29] MEDS: Hydrochlorothiazide 25 MG Tab PO SCH (10:09)
[2020-02-29] MEDS: Sertraline 50 MG Tab PO SCH (10:09)
[2020-02-29 10:11] VITALS: BP 140/80
== END 2020-02-29 10:30 | disposition home or self-care (01) | DRG 776 ==
LOC: JP.ED 19:31 → JP.MS 22:13
PROVIDERS: ADMIT Nurse Practitioner Family; ATTEND Nurse Practitioner Family
PROC: 3E0R3GC Introduction of Other Therapeutic Substance into Spinal Canal, Percutaneous Approach (ICD-10-PCS; principal; 2020-02-25)
DX: O14.95 Unspecified pre-eclampsia, complicating the puerperium (principal); O89.4 Spinal and epidural anesthesia-induced headache during the puerperium; O99.345 Other mental disorders complicating the puerperium; F32.9 Major depressive disorder, single episode, unspecified; F41.9 Anxiety disorder, unspecified; O99.825 Streptococcus B carrier state complicating the puerperium
CPT/HCPCS: 36415; 70450; 80048; 80053; 81001; 82570; 82962; 83615; 83735; 84156; 84450; 84460; 84550; 85025; 85610; 94762; 96365; 96366; 96375; 99285; 99285-25; A9270-GY; J0696; J1940; J2060; J3475; J7050; J7120